=== PATIENT | female | born 1965 | race Caucasian/White ===

== ENCOUNTER 2018-05-03 09:22 | Inpatient (IN) | payer MEDICAID, MEDICARE ==
[2018-05-03 09:53] LABS: #Basophils 0.1 thou/uL (0.0-0.2); #Eosinphils 0.2 thou/uL (0.0-0.7); #Lymphocytes 3.1 thou/uL (1.20-3.40); #Monocytes 0.5 thou/uL (0.11-0.59); #Neutrophils 5.3 thou/uL (1.40-6.50); %Basophils 1.2 % (0.0-1.0); %Eosinophils 2.2 % (0.0-10.0); %Lymphocytes 33.6 % (21.0-51.0); %Monocytes 5.7 % (0.0-10.0); %Neutrophils 57.3 % (42.0-75.0); Hemoglobin 13.4 g/dL (12.0-16.0); Mean Corpuscular HGB CONC 31.5 g/dL (32.0-36.0); Mean Platelet Volume 8.4 fL (7.4-10.4); Platelet Count 317 thou/uL (130-400); RBC Distribution Width 12.4 % (11.5-14.5); Red Blood Cell (RBC) Count 4.61 mill/uL (4.20-5.40); White Blood Cell (WBC) Count 9.3 thou/uL (4.8-10.8)
--- NOTE | 2018-05-03 10:12 | RAD ---
PORTABLE CHEST: HISTORY: Chest pain. FINDINGS: The lungs are clear. No infiltrate or vascular congestion. The heart and mediastinum are unremarkab le. IMPRESSION: No acute finding. POS: [facility]
[2018-05-03 10:18] LABS: ALT (SGPT) 13 U/L (8-55); AST (SGOT) 15 U/L (5-34); Albumin 4.2 g/dL (3.5-5.0); Alkaline Phosphatase 151 U/L (40-150); Anion Gap 12 mmol/L (10-20); BUN (Urea Nitrogen) 14 mg/dL (9.8-20.1); Bilirubin, Total 0.9 mg/dL (0.2-1.2); CK (CPK) 94 U/L (29-168); Calc. Creatinine Clearance 0 mL/min (70-130); Calcium 9.7 mg/dL (7.8-10.44); Carbon Dioxide 25 mmol/L (22-29); Chloride 106 mmol/L (98-107); Estimated GFR-MDRD 82; Globulin 3.2 g/dL (2.4-3.5); Glucose 88 mg/dL (70-105); Lipase 7 U/L (8-78); Potassium 4.1 mmol/L (3.5-5.1); Protein, Total 7.4 g/dL (6.0-8.3); Sodium 139 mmol/L (136-145)
[2018-05-03 10:22] LABS: CKMB 1.5 ng/mL (0-6.6); Troponin I Less than 0.010 ng/mL (< 0.028)
[2018-05-03 13:23] VITALS: BMI 34.9
[2018-05-03] MEDS ORDERED: Nitroglycerin 0.4 MG TAB (25 Tab Bottle) PO PRN (13:41)
[2018-05-03] MEDS ORDERED: Guaifenesin DM 100-10/5 ML UDCUP PO PRN (13:41)
[2018-05-03] MEDS ORDERED: Ondansetron ODT 4 MG TAB SL PRN (13:56)
[2018-05-03] MEDS ORDERED: Ondansetron HCl/PF 4 MG/2 ML Vial IVP PRN (13:56)
[2018-05-03 16:17] LABS: Troponin I 0.023 ng/mL (< 0.028)
[2018-05-03] MEDS: Acetaminophen 325 MG TAB PO PRN ×2 (16:40→21:12)
--- NOTE | 2018-05-03 21:41 | HP ---
DATE OF ADMISSION: 05/03/2018 REASON FOR ADMISSION: Chest pain. HISTORY OF PRESENT ILLNESS: The patient gives history of retrosternal chest pain radiating to left upper extremity and left side of her neck, which comes on with minimal exertion. It lasts for 15-20 minutes and gets complete relief on resting. These of late have been associated with diaphoresis and the patient feels weak for nearly an hour or two after these episodes. No prior history of cardiac workup. No complaints of palpitations or PND. PAST MEDICAL AND SURGICAL HISTORY: History of hysterectomy for unknown cysts, obesity. CURRENT MEDICATIONS: None. ALLERGIES: No known drug allergies. PERSONAL HISTORY: Does not abuse alcohol or drugs. No history of smoking. FAMILY HISTORY: Mother is healthy and living. Brother has had history of Hodgkin's lymphoma. Father of massive NH and stroke in his 40s. She lives with her . Has grown up children. The patient does not work. CODE STATUS: Full. REVIEW OF SYSTEMS: The following complete review of systems was negative, unless otherwise mentioned in the HPI or below: Constitutional: Weight loss or gain, ability to conduct usual activities. Skin: Rash, itching. Eyes: Double vision, pain. ENT/Mouth: Nose bleeding, neck stiffness, pain, tenderness. Cardiovascular: Palpitations, dyspnea on exertion, orthopnea. Respiratory: Shortness of breath, wheezing, cough, hemoptysis, fever or night sweats. Gastrointestinal: Poor appetite, abdominal pain, heartburn, nausea, vomiting, constipation, or diarrhea. Genitourinary: Urgency, frequency, dysuria, nocturia. Musculoskeletal: Pain, swelling. Neurologic/Psychiatric: Anxiety, depression. Allergy/Immunologic: Skin rash, bleeding tendency. PHYSICAL EXAMINATION: GENERAL: The patient is a 53-year-old female who is currently not in any acute distress. VITAL SIGNS: Blood pressure 110/80, pulse 56 per minute, respiratory rate 18 per minute, temperature 97.9 degrees Fahrenheit, saturating 95% on room air. NECK: Supple. No elevated JVD. HEENT: Extraocular muscles intact. Pupils reacting to light. Oral cavity, mucous membranes are moist. No exudates or congestion. CARDIOVASCULAR: S1, S2 heard. Regular rhythm. RESPIRATORY: Air entry 2+ bilateral. No rales or rhonchi. ABDOMEN: Soft. Bowel sounds heard. No tenderness, rigidity or guarding. EXTREMITIES: No peripheral edema or calf tenderness. VASCULAR SYSTEM: Peripheral pulses 2+ bilateral. No ischemic ulcerations or gangrene. CENTRAL NERVOUS SYSTEM: No gross focal deficits noted. The patient is alert, awake, oriented well. PSYCHIATRIC: The patient's mood is euthymic. No hallucinations or delusions. LABORATORY AND X-RAY FINDINGS: Chest x-ray done shows no acute cardiopulmonary abnormalities. EKG done shows sinus bradycardia at 50 beats per minute. No gross ST-T wave changes. Troponin x2 negative. CK-MB 1.5, albumin is 4.2. Electrolytes are stable. BUN 14, creatinine 0.7. White count of 9, H and H of 13 and 42, platelet count 317,000, MCV is 92 with 57% neutrophils. CLINICAL IMPRESSION AND PLAN: The patient will be under observation on telemetry for chest pain to rule out acute coronary syndrome. The patient will be scheduled for Cardiolite stress test. She will be on full dose aspirin for now. The patient gives history of unknown mass in her abdomen with this apparently spreading inside her belly in the past and has not followed up with her physicians. She has not had a formal Oncology followup as well. She has been strongly counseled to follow up with primary care physician and have further workup for all of this. Also, apparently the patient has had prior history of bipolar disorder and schizophrenia, which she claims she is fully in remission at present and is not on any medications at present. The plan is to obtain Cardiolite stress test and if it is negative, the patient can be discharged home. CECILIA
[2018-05-04 04:30] LABS: #Basophils 0.1 thou/uL (0.0-0.2); #Eosinphils 0.4 thou/uL (0.0-0.7); #Lymphocytes 4.2 thou/uL (1.20-3.40); #Monocytes 0.6 thou/uL (0.11-0.59); #Neutrophils 4.8 thou/uL (1.40-6.50); %Basophils 1.1 % (0.0-1.0); %Eosinophils 3.5 % (0.0-10.0); %Lymphocytes 41.3 % (21.0-51.0); %Monocytes 6.1 % (0.0-10.0); Hemoglobin 13.2 g/dL (12.0-16.0); Mean Corpuscular HGB CONC 31.9 g/dL (32.0-36.0); Mean Corpuscular Hemoglobin 29.7 pg (27.0-31.0); Mean Corpuscular Volume 93.1 fL (78.0-98.0); Mean Platelet Volume 8.7 fL (7.4-10.4); Platelet Count 289 thou/uL (130-400); RBC Distribution Width 12.4 % (11.5-14.5); Red Blood Cell (RBC) Count 4.43 mill/uL (4.20-5.40)
[2018-05-04 04:38] LABS: Anion Gap 12 mmol/L (10-20); BUN (Urea Nitrogen) 19 mg/dL (9.8-20.1); Calc. Creatinine Clearance 125 mL/min (70-130); Calcium 9.3 mg/dL (7.8-10.44); Carbon Dioxide 25 mmol/L (22-29); Cardiac Risk 4.4 (Less than 4.5); Chloride 108 mmol/L (98-107); Cholesterol 168 mg/dl (< 200 Desired); Estimated GFR-MDRD 83; Glucose 97 mg/dL (70-105); HDL Cholesterol 38 mg/dL (>60 Neg Risk); LDL Cholesterol, Calculated 111 mg/dL; Potassium 4.3 mmol/L (3.5-5.1); Sodium 141 mmol/L (136-145); Triglycerides 93 mg/dL (Less than 150)
[2018-05-04] MEDS: Enoxaparin Sodium 40 MG/0.4 ML SYRINGE SC SCH (09:07)
[2018-05-04] MEDS: Aspirin 325 MG TAB PO SCH (09:32)
--- NOTE | 2018-05-04 10:38 | NM ---
REST ONLY MYOCARDIAL PERFUSION STUDY: DATE: 05/04/18. HISTORY: Chest pain. RADIOPHARMACEUTICAL: 27 mCi Technetium 99m sestamibi, IV at rest. FINDINGS: Only the rest portion of this examination was performed as the patient developed pain upon the stress portion of the examination and stress images were not obtained. Resting acquisition demonstrates no rmal uptake of radiotracer within the left ventricular myocardium. The patient was stressed accordin g to routine Graham protocol, but as noted above the patient developed chest pain and EKG changes. As a result, the stress images were not obtained. IMPRESSION: Stress imaging was not obtained due to patient's development of chest pain and abnormal EKG changes d uring the stress portion of the exam. As a result, comparison of rest and stress acquisitions was un able to be performed to evaluate for ischemia based on this exam. POS: [facility]
--- NOTE | 2018-05-04 13:10 | PDOC.PN ---
- Subjective Encounter Start Date: 05/04/18 Encounter Start Time: 11:30 Subjective: no current chest pain or palp - Objective Resuscitation Status: Resuscitation Status FULL:Full Resuscitation MAR Reviewed: Yes Vital Signs & Weight: Vital Signs (12 hours) Temp Pulse Resp BP Pulse Ox 05/04/18 11:08 98.5 F 47 L 16 146/72 H 97 05/04/18 07:29 97.4 F L 44 L 16 124/65 93 L 05/04/18 05:25 96 05/04/18 04:01 97.4 F L 60 14 136/65 96 Weight Weight 195 lb 11.2 oz I&O: 05/03/18 05/04/18 05/05/18 06:59 06:59 06:59 Intake Total 800 Balance 800 Result Diagrams: 05/04/18 04:00 05/04/18 04:00 Phys Exam - Physical Examination HEENT: PERRLA, moist MMs Neck: no JVD, supple Respiratory: no wheezing, no rales Cardiovascular: RRR, no significant murmur Gastrointestinal: soft, non-tender, positive bowel sounds Musculoskeletal: no edema, pulses present Neurological: non-focal, moves all 4 limbs Psychiatric: normal affect, A&O x 3 Dx/Plan (1) Chest pain Code(s): R07.9 - CHEST PAIN, UNSPECIFIED Status: Acute Qualifiers: Chest pain type: unspecified Qualified Code(s): R07.9 - Chest pain, unspecified (2) Obesity (BMI 30.0-34.9) Code(s): E66.9 - OBESITY, UNSPECIFIED Status: Chronic (3) Dyslipidemia Code(s): E78.5 - HYPERLIPIDEMIA, UNSPECIFIED Status: Acute - Plan has ST-T wave changes very early into stress test and had to be aborted -: cardio consult -: discussed in detail about angiogram, stenting, pci etc -: dc plan per cardio advice * . Review of Systems - Medications/Allergies Allergies/Adverse Reactions: Allergies Allergy/AdvReac Type Severity Reaction Status Date / Time No Known Allergies Allergy Verified 05/03/18 13:13 Medications: Current Medications Acetaminophen (Tylenol) 650 mg PO Q4H PRN PRN Reason: Headache/Fever or Pain Last Admin: 05/03/18 21:12 Dose: 650 mg Aspirin (Aspirin) 325 mg PO DAILY LANIE Last Admin: 05/04/18 09:32 Dose: Not Given Enoxaparin Sodium (Lovenox) 40 mg SC 09 [facility] Last Admin: 05/04/18 09:07 Dose: Not Given Guaifenesin/Dextromethorphan (Robitussin Dm) 15 ml PO Q4H PRN PRN Reason: Cough Nitroglycerin (Nitrostat) 0.4 mg PO Q5MIN PRN PRN Reason: Chest Pain
[2018-05-04] MEDS: Acetaminophen 325 MG TAB PO PRN ×2 (14:10→19:25)
[2018-05-05] MEDS: Enoxaparin Sodium 40 MG/0.4 ML SYRINGE SC SCH (08:32)
[2018-05-05] MEDS: Aspirin 325 MG TAB PO SCH (08:32)
[2018-05-05] MEDS: Acetaminophen 325 MG TAB PO PRN (08:32)
--- NOTE | 2018-05-05 11:20 | PDOC.CTH ---
<SaraarronSimona Allison - Last Filed: 05/05/18 11:19> Cardiology Progress Note - Subjective Patient with c/o chest pain overnight, but only when she got upset. - Objective Vital Signs Temp Pulse Resp BP Pulse Ox 05/05/18 07:26 98.7 F 51 L 16 167/79 H 95 05/05/18 05:27 96 05/05/18 04:02 98.4 F 58 L 20 160/70 H 96 Weight 195 lb 11.2 oz 05/04/18 05/05/18 05/06/18 06:59 06:59 06:59 Intake Total 800 1210 Balance 800 1210 - Physical Examination General/Neuro: alert & oriented x3 Neck: no JVD present Lungs: CTA Heart: RRR Abdomen: NT/ND Extremities: + edema B - Telemetry Telemetry Rhythm: SR - Labs Result Diagrams: 05/04/18 04:00 05/04/18 04:00 Troponin/CKMB CK-MB (CK-2) 1.5 ng/mL (0-6.6) 05/03/18 09:36 Troponin I 0.023 ng/mL (< 0.028) 05/03/18 15:44 - Assessment/Plan 1. CP 2. Abnormal stress test 3. Bipolar Disorder 4. Schizophrenia Patient has thought about options and wants to proceed with angio to definitively r/o CAD. Plan for tomorrow. Dr. Pierson to see patient and consent later today. <Luis Miguel Aguilar - Last Filed: 05/05/18 13:58> Cardiology Progress Note - Objective Vital Signs Temp Pulse Resp BP Pulse Ox 05/05/18 11:30 98.7 F 54 L 20 137/78 94 L 05/05/18 07:26 98.7 F 51 L 16 167/79 H 95 05/05/18 05:27 96 05/05/18 04:02 98.4 F 58 L 20 160/70 H 96 Weight 195 lb 11.2 oz 05/04/18 05/05/18 05/06/18 06:59 06:59 06:59 Intake Total 800 1210 Balance 800 1210 - Labs Result Diagrams: 05/04/18 04:00 05/04/18 04:00 Troponin/CKMB CK-MB (CK-2) 1.5 ng/mL (0-6.6) 05/03/18 09:36 Troponin I 0.023 ng/mL (< 0.028) 05/03/18 15:44 - Assessment/Plan Pt seen and examined. Pt opts for proceeding with angio. Discussed R/B of angio with pt. She is agreeable. present. t opts for a BMS over a DCS.
--- NOTE | 2018-05-05 12:38 | PDOC.PN ---
- Subjective Encounter Start Date: 05/05/18 Encounter Start Time: 10:15 Subjective: no chest pain or sob now - Objective Resuscitation Status: Resuscitation Status FULL:Full Resuscitation MAR Reviewed: Yes Vital Signs & Weight: Vital Signs (12 hours) Temp Pulse Resp BP Pulse Ox 05/05/18 11:30 98.7 F 54 L 20 137/78 94 L 05/05/18 07:26 98.7 F 51 L 16 167/79 H 95 05/05/18 05:27 96 05/05/18 04:02 98.4 F 58 L 20 160/70 H 96 Weight Weight 195 lb 11.2 oz I&O: 05/04/18 05/05/18 05/06/18 06:59 06:59 06:59 Intake Total 800 1210 Balance 800 1210 Result Diagrams: 05/04/18 04:00 05/04/18 04:00 Phys Exam - Physical Examination HEENT: PERRLA, moist MMs Neck: no JVD, supple Respiratory: no wheezing, no rales Cardiovascular: RRR, no significant murmur Gastrointestinal: soft, non-tender, positive bowel sounds Musculoskeletal: no edema, pulses present Neurological: non-focal, moves all 4 limbs Psychiatric: normal affect, A&O x 3 Dx/Plan (1) Chest pain Code(s): R07.9 - CHEST PAIN, UNSPECIFIED Status: Acute Qualifiers: Chest pain type: unspecified Qualified Code(s): R07.9 - Chest pain, unspecified (2) Obesity (BMI 30.0-34.9) Code(s): E66.9 - OBESITY, UNSPECIFIED Status: Chronic (3) Dyslipidemia Code(s): E78.5 - HYPERLIPIDEMIA, UNSPECIFIED Status: Acute - Plan for cath in am -: on asp, add lipitor and lisinopril -: hemostable -: pt and at bedside have decided to proceed with cath in am * . Review of Systems - Medications/Allergies Allergies/Adverse Reactions: Allergies Allergy/AdvReac Type Severity Reaction Status Date / Time No Known Allergies Allergy Verified 05/03/18 13:13 Medications: Current Medications Acetaminophen (Tylenol) 650 mg PO Q4H PRN PRN Reason: Headache/Fever or Pain Last Admin: 05/05/18 08:32 Dose: 650 mg Aspirin (Aspirin) 325 mg PO DAILY LANIE Last Admin: 05/05/18 08:32 Dose: 325 mg Enoxaparin Sodium (Lovenox) 40 mg SC 0900 [facility] Last Admin: 05/05/18 08:32 Dose: 40 mg Guaifenesin/Dextromethorphan (Robitussin Dm) 15 ml PO Q4H PRN PRN Reason: Cough Nitroglycerin (Nitrostat) 0.4 mg PO Q5MIN PRN PRN Reason: Chest Pain
--- NOTE | 2018-05-05 18:05 | CON ---
DATE OF CONSULTATION: 05/04/2018 REASON FOR CONSULTATION: Chest pain. HISTORY OF PRESENT ILLNESS: Ms. Murillo is a 53-year-old woman, who has not been seen by Cardiology in the past. She recently presented with angina. This occurred while being chased by a bee. She stat es she had chest pain with left arm and neck radiation. She states she has had this in the past. Elena anderson has been evaluated in [place] for chest discomfort and recommend coronary angiography with poten tial stent placement. She deferred. She recently underwent noninvasive stress study that was felt to be positive for ischemia. Ms. Murillo also has a vague episode of an abdominal mass, which she states was noted on her ovary with potential to metastasized? to the omentum. She has not sought further treatment. PAST MEDICAL HISTORY: Bipolar disorder, schizophrenia. PAST SURGICAL HISTORY: Hysterectomy. ALLERGIES: None. SOCIAL HISTORY: No current tobacco or alcohol use. FAMILY HISTORY: Positive for CAD. REVIEW OF SYSTEMS: Ten-point review of systems is reviewed and as above, otherwise negative. PHYSICAL EXAMINATION: VITAL SIGNS: Blood pressure 146/74, pulse 47, temperature 98.5. NEUROLOGIC: The patient is alert and oriented times 3 with no focal neurologic deficits. HEENT: Sclerae without icterus. Mouth has moist mucous membranes with normal pallor. NECK: No JVD. Carotid upstroke brisk. No bruits bilaterally. LUNGS: Clear to auscultation with unlabored respirations. BACK: No scoliosis or kyphosis. CARDIAC: Regular rate and rhythm with normal S1 and S2. No S3 or S4 noted. No significant rubs, murmurs, thrills, or gallops noted throughout the precordium. PMI is not displaced. There is no parasternal heave. ABDOMEN: Soft, nontender, nondistended. No peritoneal signs present. No hepatosplenomegaly. No abnormal striae. EXTREMITIES: 2+ femoral and 2+ dorsalis pedis pulses. No cyanosis, clubbing, or edema. SKIN: No gross abnormalities. PERTINENT LABS: CK troponin negative. IMPRESSION: Angina. RECOMMENDATIONS: Ms. Murillo symptoms certainly suggest angina. I discussed medical therapy versus an giography as previously described. I discussed the procedure in full detail to Ms. Murillo, risks incl uded but are not limited to the following: I discussed the procedure in full detail with the patient . The risks of the procedure were also discussed. The risks of the procedure include but are not li mited to the following: , stroke, [place], need for emergency surgery, loss of limb, bleeding, and i nfection, as well as a reaction to the dye causing kidney failure and needing long-term dialysis. I also discussed the risks of PCI to include all of the above including coronary dissection and perfora tion in addition to acute stent thrombosis and restenosis. All questions about the procedure were an swered. Given the above, the patient agreed to proceed with coronary angiography and possible PCI. bare metal stent. She states she currently gets medical therapy, but would take medication for at least a month, if needed. She can also take aspirin indefinitely. She would like to think about her options. She will also have a workup for this? mass present. This will be per primary team.
[2018-05-05] MEDS: Atorvastatin Calcium 20 MG TAB PO SCH (20:45)
[2018-05-06] MEDS: Acetaminophen 325 MG TAB PO PRN ×3 (00:41→21:11)
[2018-05-06] MEDS: Aspirin 325 MG TAB PO SCH (05:09)
[2018-05-06] MEDS: Lisinopril 10 MG TAB PO SCH (05:09)
[2018-05-06] MEDS: Enoxaparin Sodium 40 MG/0.4 ML SYRINGE SC SCH (05:10)
[2018-05-06] MEDS ORDERED: Heparin 10,000 UNITS/1 ML VIAL ONE (07:43)
[2018-05-06] MEDS ORDERED: Lidocaine 1% (PF) 30 ML VIAL ONE ×2 (07:43→09:22)
[2018-05-06] MEDS ORDERED: Nitroglycerin 100MG/250ML BOT 250 ML ONE (07:43)
[2018-05-06] MEDS ORDERED: Sodium Chloride 0.9% 1,000 ML IV SCH ×2 (08:45→10:00)
[2018-05-06] MEDS ORDERED: Fentanyl 100 MCG/2 ML VIAL ONE (09:30)
[2018-05-06] MEDS ORDERED: Midazolam HCl 2 mg/2 ml Vial ONE (09:30)
[2018-05-06] MEDS ORDERED: traMADol HCl 50 MG TAB PO PRN (09:52)
[2018-05-06] MEDS ORDERED: Acetaminophen/Codeine 30-300mg Tablet PO PRN ×2 (09:52)
--- NOTE | 2018-05-06 09:56 | PDOC.PN ---
- Subjective Encounter Start Date: 05/06/18 Encounter Start Time: 08:00 Subjective: no further chest pain - Objective Resuscitation Status: Resuscitation Status FULL:Full Resuscitation MAR Reviewed: Yes Vital Signs & Weight: Vital Signs (12 hours) Temp Pulse Resp BP BP Pulse Ox 05/06/18 07:24 97.8 F 53 L 18 182/81 H 95 05/06/18 05:09 144/77 H 05/06/18 05:08 97.8 F 50 L 18 144/77 H 95 05/05/18 22:54 98.2 F 51 L 15 150/70 H 97 Weight Weight 194 lb 3.2 oz I&O: 05/05/18 05/06/18 05/07/18 06:59 06:59 06:59 Intake Total 1210 1150 Balance 1210 1150 Result Diagrams: 05/04/18 04:00 05/04/18 04:00 Phys Exam - Physical Examination HEENT: PERRLA, moist MMs Neck: no JVD, supple Respiratory: no wheezing, no rales Cardiovascular: RRR, no significant murmur Gastrointestinal: soft, non-tender, positive bowel sounds Musculoskeletal: no edema, pulses present Neurological: non-focal, moves all 4 limbs Psychiatric: normal affect, A&O x 3 Dx/Plan (1) Chest pain Code(s): R07.9 - CHEST PAIN, UNSPECIFIED Status: Acute Qualifiers: Chest pain type: unspecified Qualified Code(s): R07.9 - Chest pain, unspecified (2) Obesity (BMI 30.0-34.9) Code(s): E66.9 - OBESITY, UNSPECIFIED Status: Chronic (3) Dyslipidemia Code(s): E78.5 - HYPERLIPIDEMIA, UNSPECIFIED Status: Acute - Plan for cath today -: is on asp, lipitor and lisinopril -: hemostable * . Review of Systems - Medications/Allergies Allergies/Adverse Reactions: Allergies Allergy/AdvReac Type Severity Reaction Status Date / Time No Known Allergies Allergy Verified 05/03/18 13:13 Medications: Current Medications Acetaminophen (Tylenol) 650 mg PO Q4H PRN PRN Reason: Headache/Fever or Pain Last Admin: 05/06/18 00:41 Dose: 650 mg Acetaminophen/Codeine Phosphate (Tylenol #3) 1 tab PO Q4H PRN PRN Reason: Mild Pain (1-3) Acetaminophen/Codeine Phosphate (Tylenol #3) 2 tab PO Q4H PRN PRN Reason: Moderate Pain (4-6) Aspirin (Aspirin) 325 mg PO DAILY [facility] Last Admin: 05/06/18 05:09 Dose: 325 mg Atorvastatin Calcium (Lipitor) 20 mg PO HS [facility] Last Admin: 05/05/18 20:45 Dose: 20 mg Enoxaparin Sodium (Lovenox) 40 mg SC 0900 [facility] Last Admin: 05/06/18 05:10 Dose: Not Given Guaifenesin/Dextromethorphan (Robitussin Dm) 15 ml PO Q4H PRN PRN Reason: Cough Sodium Chloride (Normal Saline 0.9%) 1,000 mls @ 100 mls/hr IV .Q10H LANIE Sodium Chloride (Normal Saline 0.9%) 1,000 mls @ 125 mls/hr IV .Q8H [facility] Stop: 05/06/18 14:01 Sodium Chloride (Normal Saline 0.9%) 200 mls @ 0 mls/hr IV ONE [facility] Lisinopril (Zestril) 10 mg PO DAILY [facility] Last Admin: 05/06/18 05:09 Dose: 10 mg Nitroglycerin (Nitrostat) 0.4 mg PO Q5MIN PRN PRN Reason: Chest Pain Nitroglycerin (Nitrostat) 0.4 mg SL Q5MIN PRN PRN Reason: Chest Pain Sodium Chloride (Flush - Normal Saline) 10 ml IVF Q12HR [facility]IE Sodium Chloride (Flush - Normal Saline) 10 ml IVF PRN PRN PRN Reason: Saline Flush Tramadol HCl (Ultram) 50 mg PO Q6H PRN PRN Reason: Moderate Pain (4-6)
[2018-05-06] MEDS ORDERED: Sodium Chloride 0.9% 200 ML IV PRN (10:00)
[2018-05-06] MEDS ORDERED: Diazepam 5 MG TAB PO PRN (11:00)
[2018-05-06] MEDS ORDERED: Communication Order-Pharmacy FS ONE (11:00)
[2018-05-06] MEDS: Nitroglycerin 0.4 MG TAB (25 Tab Bottle) SL PRN ×3 (11:57→21:15)
[2018-05-06 11:59] LABS: PTT 33.8 SEC (22.9-36.1)
[2018-05-06 12:04] LABS: Hemoglobin A1c 5.1 % (4.0-6.0)
--- NOTE | 2018-05-06 12:36 | CON ---
DATE OF CONSULTATION: 05/06/2018 DATE OF ADMISSION: 05/03/2018 REASON FOR CONSULTATION: Evaluate the patient for coronary artery bypass grafting. Chart reviewed/patient examined/films reviewed. HISTORY OF PRESENT ILLNESS: Ms. Murillo is a 53-year-old woman, who was admitted with angina. She was apparently running across her yard and had chest pain. She has a previous history of chest pain chin roximately 7 years ago where cardiac catheterization was recommended and she did not follow up. She is very unclear as to any medical history. She does not use a traditional medicine at home. She was admitted and underwent a stress test, which was positive and subsequent catheterization today revealing an ostial LAD severe stenosis. I have been asked to see her for bypass. PAST MEDICAL HISTORY: 1. Bipolar disorder. 2. Schizophrenia. PAST SURGICAL HISTORY: Hysterectomy. CURRENT MEDICATIONS: None. ALLERGIES: None. SOCIAL HISTORY: She does not use tobacco. REVIEW OF SYSTEMS: Ten-point review of systems is performed and is negative except as above. PHYSICAL EXAMINATION: GENERAL: This is a well-developed, well-nourished woman, resting comfortably in bed. VITAL SIGNS: Height is 5 foot 3 inches, weight is 194 pounds, BSA is 1.98, temperature is 97.8, puls e is 51 and regular, blood pressure is 173/75. HEENT: Sclerae nonicteric. Pupils are equal and round bilaterally. NECK: Supple, without bruit. CHEST: Clear to auscultation bilaterally. HEART: Rhythm is regular, without murmur. ABDOMEN: Soft and nontender. EXTREMITIES: No cyanosis, clubbing or edema. VASCULAR: She has palpable carotid, radial, femoral and dorsalis pedis pulses bilaterally. VENOUS: There are no venous varicosities or venous stasis changes. PSYCHIATRIC: The patient is awake, alert, and oriented to person, place and time. SKIN: She does have tattoos all over her face, outlining her makeup. LABORATORY DATA AND IMAGING: Of note, hemoglobin is 13.2, platelet count is 289,000. Potassium is 4 .3, creatinine is 0.73. Her total cholesterol is 168 with a LDL of 111, HDL is 38. She has not had a hemoglobin A1c checked. Chest x-ray shows no dominant lung mass. ASSESSMENT AND PLAN: Angina with ostial LAD stenosis and preserved left ventricular function. I thi nk she can be done as an off pump CABG with PHAM to LAD. I have discussed this with her and she is a menable to proceeding.
[2018-05-06] MEDS ORDERED: Polyethylene Glycol 3350 17 GM Packet PO SCH (19:00)
[2018-05-06] MEDS ORDERED: Bisacodyl 10 MG SUPP PR SCH (19:00)
[2018-05-06] MEDS: Atorvastatin Calcium 20 MG TAB PO SCH (21:11)
[2018-05-06] MEDS: Docusate 100 MG CAP PO SCH (21:12)
[2018-05-07] MEDS: Acetaminophen 325 MG TAB PO PRN ×3 (03:23→21:17)
[2018-05-07] MEDS: Nitroglycerin 0.4 MG TAB (25 Tab Bottle) SL PRN ×6 (03:24→21:17)
--- NOTE | 2018-05-07 08:11 | PDOC.CTH ---
Cardiology Progress Note - Subjective No cmplaints today. - Objective Vital Signs Temp Pulse Resp BP Pulse Ox 05/07/18 07:35 97.5 F L 51 L 15 146/68 H 95 05/07/18 04:00 97.6 F 47 L 16 124/60 97 Weight 193 lb 11.2 oz 05/06/18 05/07/18 05/08/18 06:59 06:59 06:59 Intake Total 1150 1800 Output Total 500 Balance 1150 1300 - Physical Examination General/Neuro: alert & oriented x3, NAD Neck: carotid US brisk, no JVD present Lungs: CTA, unlabored respirations Heart: PMI normal, RRR Abdomen: no HSM, NT/ND, soft Extremities: + femoral B - Labs Result Diagrams: 05/04/18 04:00 05/04/18 04:00 Troponin/CKMB CK-MB (CK-2) 1.5 ng/mL (0-6.6) 05/03/18 09:36 Troponin I 0.023 ng/mL (< 0.028) 05/03/18 15:44 - Assessment/Plan Sevre CAD Recommend CABG over PCI given location and small diameter of the LAD. Pt also opted for BMS over DCS and would more likley have ISR. She agrees. No other changes On statin and BB
[2018-05-07] MEDS: Aspirin 325 MG TAB PO SCH (09:09)
[2018-05-07] MEDS: Docusate 100 MG CAP PO SCH ×2 (09:09→20:50)
[2018-05-07] MEDS: Lisinopril 10 MG TAB PO SCH (09:09)
[2018-05-07] MEDS: Polyethylene Glycol 3350 17 GM Packet PO SCH (09:10)
--- NOTE | 2018-05-07 10:32 | PDOC.PN ---
- Subjective Encounter Start Date: 05/07/18 Encounter Start Time: 10:15 Subjective: no chest pain or sob or palpitation - Objective Resuscitation Status: Resuscitation Status FULL:Full Resuscitation MAR Reviewed: Yes Vital Signs & Weight: Vital Signs (12 hours) Temp Pulse Resp BP Pulse Ox 05/07/18 07:35 97.5 F L 51 L 15 146/68 H 95 05/07/18 04:00 97.6 F 47 L 16 124/60 97 Weight Weight 193 lb 11.2 oz I&O: 05/06/18 05/07/18 05/08/18 06:59 06:59 06:59 Intake Total 1150 1800 Output Total 500 Balance 1150 1300 Result Diagrams: 05/04/18 04:00 05/04/18 04:00 Phys Exam - Physical Examination HEENT: PERRLA, moist MMs Neck: no JVD, supple Respiratory: no wheezing, no rales Cardiovascular: RRR, no significant murmur Gastrointestinal: soft, non-tender, positive bowel sounds Musculoskeletal: no edema, pulses present Neurological: non-focal, moves all 4 limbs Psychiatric: normal affect, A&O x 3 Dx/Plan (1) CAD (coronary artery disease) Code(s): I25.10 - ATHSCL HEART DISEASE OF [place] CORONARY ARTERY W/O ANG PCTRS Status: Acute Qualifiers: Coronary Disease-Associated Artery/Lesion type: [place] artery [place] vs. transplanted heart: [place] heart Associated angina: with unstable angina Qualified Code(s): I25.110 - Atherosclerotic heart disease of [place] coronary artery with unstable angina pectoris (2) Chest pain Code(s): R07.9 - CHEST PAIN, UNSPECIFIED Status: Acute Qualifiers: Chest pain type: chest pain due to myocardial ischemia (3) Obesity (BMI 30.0-34.9) Code(s): E66.9 - OBESITY, UNSPECIFIED Status: Chronic (4) Dyslipidemia Code(s): E78.5 - HYPERLIPIDEMIA, UNSPECIFIED Status: Acute - Plan for off pump cabg to lad in am -: continue asp, lipitor and lisinopril -: hemostable * . Review of Systems - Medications/Allergies Allergies/Adverse Reactions: Allergies Allergy/AdvReac Type Severity Reaction Status Date / Time No Known Allergies Allergy Verified 05/03/18 13:13 Medications: Current Medications Acetaminophen (Tylenol) 650 mg PO Q4H PRN PRN Reason: Headache/Fever or Pain Stop: 05/08/18 08:59 Last Admin: 05/07/18 03:23 Dose: 650 mg Acetaminophen/Codeine Phosphate (Tylenol #3) 1 tab PO Q4H PRN PRN Reason: Mild Pain (1-3) Stop: 05/08/18 08:59 Acetaminophen/Codeine Phosphate (Tylenol #3) 2 tab PO Q4H PRN PRN Reason: Moderate Pain (4-6) Stop: 05/08/18 08:59 Aspirin (Aspirin) 325 mg PO DAILY [facility] Stop: 05/08/18 08:59 Last Admin: 05/07/18 09:09 Dose: 325 mg Atorvastatin Calcium (Lipitor) 20 mg PO HS [facility] Stop: 05/08/18 08:59 Last Admin: 05/06/18 21:11 Dose: 20 mg Atorvastatin Calcium (Lipitor) 40 mg PO HS [facility] Diazepam (Valium) 5 mg PO HSPRN PRN PRN Reason: Insomnia Stop: 05/08/18 08:59 Docusate Sodium (Colace) 100 mg PO BID [facility] Last Admin: 05/07/18 09:09 Dose: 100 mg Guaifenesin/Dextromethorphan (Robitussin Dm) 15 ml PO Q4H PRN PRN Reason: Cough Stop: 05/08/18 08:59 Lisinopril (Zestril) 10 mg PO DAILY [facility] Stop: 05/08/18 08:59 Last Admin: 05/07/18 09:09 Dose: 10 mg Nitroglycerin (Nitrostat) 0.4 mg SL Q5MIN PRN PRN Reason: Chest Pain Stop: 05/08/18 08:59 Last Admin: 05/07/18 03:50 Dose: 0.4 mg Polyethylene Glycol (Miralax) 17 gm PO DAILY [facility] Last Admin: 05/07/18 09:10 Dose: 17 gm Sodium Chloride (Flush - Normal Saline) 10 ml IVF Q12HR [facility] Last Admin: 05/07/18 09:10 Dose: 10 ml Sodium Chloride (Flush - Normal Saline) 10 ml IVF PRN PRN PRN Reason: Saline Flush Tramadol HCl (Ultram) 50 mg PO Q6H PRN PRN Reason: Moderate Pain (4-6) Stop: 05/08/18 08:59
--- NOTE | 2018-05-07 15:47 | EKG ---
Test Reason : CP Blood Pressure : / mmHG Vent. Rate : 068 BPM Atrial Rate : 068 BPM P-R Int : 144 ms QRS Dur : 078 ms QT Int : 390 ms P-R-T Axes : 021 012 083 degrees QTc Int : 414 ms Normal sinus rhythm Normal ECG When compared with ECG of 03-MAY-2018 09:27, (Unconfirmed) No significant change was found Confirmed by CHIOMA STEWARD, . S. ([id number]) on 05/07/2018 3:47:27 PM Referred By: IDA Confirmed By:DR. Luna BEDOLLA MD
[2018-05-07] MEDS: Atorvastatin Calcium 40 MG TAB PO SCH (20:49)
[2018-05-07] MEDS ORDERED: CEFAZOLIN/Water 2 GM/20 ML SYRINGE SLOW IVP SCH (22:30)
[2018-05-08] MEDS: Lisinopril 10 MG TAB PO SCH (05:25)
[2018-05-08] MEDS ORDERED: Albumin 5% 500 ML ONE (05:47)
[2018-05-08] MEDS ORDERED: Fentanyl 100 MCG/2 ML VIAL ONE (06:00)
[2018-05-08] MEDS ORDERED: Midazolam HCl 2 mg/2 ml Vial ONE (06:00)
[2018-05-08] MEDS ORDERED: Midazolam HCl 5 mg/5 ml Vial ONE (06:00)
[2018-05-08] MEDS ORDERED: Vecuronium 10 MG VIAL ONE ×3 (06:01→15:13)
[2018-05-08] MEDS ORDERED: Dexmedetomidine 200 MCG/2 ML VIAL ONE (06:01)
[2018-05-08] MEDS ORDERED: Heparin 10,000 UNITS/1 ML VIAL 30,000 UNITS in Sodium Chloride 0.9% 1,000 ML FS SCH (06:15)
[2018-05-08] MEDS ORDERED: CEFAZOLIN/Water 2 GM/20 ML SYRINGE ONE (06:16)
[2018-05-08] MEDS ORDERED: SUGAMMADEX SODIUM 200 MG/2 ML VIAL ONE (09:30)
[2018-05-08] MEDS ORDERED: Guaifenesin DM 100-10/5 ML UDCUP PO PRN (09:46)
[2018-05-08] MEDS ORDERED: Bisacodyl 5 MG TAB PO PRN (09:46)
[2018-05-08] MEDS ORDERED: Mag-Al 1200 mg/1200 mg/30 ML UDCUP PO PRN (09:46)
[2018-05-08] MEDS ORDERED: Magnesium 2 GM/NS 0.9% 100 ML 2 GM in Premix Bag 1 BAG IVPB SCH (09:46)
[2018-05-08] MEDS ORDERED: Post-Op Insulin Drip Protocol IVPB ONE (09:46)
[2018-05-08] MEDS ORDERED: Phenylephrine 10 MG/NS 250 ML 250 ML IVPB PRN (09:46)
[2018-05-08] MEDS ORDERED: Hetastarch 6% 500 ML 500 ML IVPB PRN (09:46)
[2018-05-08] MEDS ORDERED: Nitroglycerin 50 MG/250 ML BOT 250 ML IVPB PRN (09:46)
[2018-05-08] MEDS ORDERED: Potassium Chloride 20 MEQ/100 ML PREMIX BAG IVPB PRN (09:46)
[2018-05-08] MEDS ORDERED: Bisacodyl 10 MG SUPP PR PRN (09:46)
[2018-05-08] MEDS ORDERED: hydrALAZINE 20 MG/ML VIAL SLOW IVP PRN (09:46)
[2018-05-08] MEDS ORDERED: Acetaminophen 325 MG TAB PO PRN (09:46)
[2018-05-08] MEDS ORDERED: Fentanyl 100 MCG/2 ML VIAL SLOW IVP PRN (09:46)
[2018-05-08] MEDS ORDERED: Promethazine HCl 25 MG/ML VIAL IM PRN (09:46)
[2018-05-08] MEDS: Docusate 100 MG CAP PO SCH (09:49)
[2018-05-08] MEDS: Polyethylene Glycol 3350 17 GM Packet PO SCH (09:50)
[2018-05-08] MEDS ORDERED: Dextrose 5% in Water 1,000 ML IV PRN (09:53)
[2018-05-08] MEDS ORDERED: Dextrose 50% Abboject 50 ML SYRINGE SLOW IVP PRN (09:53)
[2018-05-08 10:02] LABS: Actual Bicarbonate (HCO3a) 21.8 mEq/L (22-28); Base Excess (BEa) -4.2 mEq/L (-2.0 to +3.0); CO2 Tension 43.5 mmHg (35.0-45.0); Calcium, Ionized 1.14 mmol/L (1.12-1.30); Hemoglobin (Hb) 12.4 g/dL (12.0-16.0); Potassium - ABG Lab 4.21 mmol/L (3.70-5.30); pH, Arterial 7.32 (7.35-7.45)
[2018-05-08 10:03] LABS: ALV-art Gradient 213.125 (0-20); Puncture Site ALINE
[2018-05-08 10:13] LABS: #Basophils 0.1 thou/uL (0.0-0.2); #Eosinphils 0.2 thou/uL (0.0-0.7); #Lymphocytes 3.1 thou/uL (1.20-3.40); #Monocytes 0.4 thou/uL (0.11-0.59); #Neutrophils 12.5 thou/uL (1.40-6.50); %Basophils 0.7 % (0.0-1.0); %Eosinophils 1.3 % (0.0-10.0); %Monocytes 2.4 % (0.0-10.0); %Neutrophils 76.6 % (42.0-75.0); Hemoglobin 12.1 g/dL (12.0-16.0); Mean Corpuscular HGB CONC 31.1 g/dL (32.0-36.0); Mean Corpuscular Hemoglobin 28.8 pg (27.0-31.0); Mean Corpuscular Volume 92.6 fL (78.0-98.0); Mean Platelet Volume 8.4 fL (7.4-10.4); Platelet Count 268 thou/uL (130-400); RBC Distribution Width 12.3 % (11.5-14.5); Red Blood Cell (RBC) Count 4.21 mill/uL (4.20-5.40); White Blood Cell (WBC) Count 16.4 thou/uL (4.8-10.8)
[2018-05-08] MEDS: D5 1/2 NS w/20 mEq KCL 1,000 ML IV SCH (10:17)
[2018-05-08 10:19] LABS: INR-International Normal Ratio 1.1; Prothrombin Time 14.2 SEC (12.0-14.7)
[2018-05-08 10:20] LABS: PTT 36.6 SEC (22.9-36.1)
[2018-05-08] MEDS: Insulin Regular 300 UNITS/3 ML VIAL SC PRN ×3 (10:26→16:51)
--- NOTE | 2018-05-08 10:32 | OP ---
DATE OF PROCEDURE: 05/08/2018 PREOPERATIVE DIAGNOSIS: Coronary artery disease. POSTOPERATIVE DIAGNOSIS: Coronary artery disease. PROCEDURE: Off-pump coronary artery bypass grafting x1 - left internal mammary artery 1.0 mm distal LAD - good conduit with small target. SURGEON: Josiah Dawson M.D. ANESTHESIA: General endotracheal - Dr. Alena Hinojosa. DRAINS: 24-[place] chest tubes x2. DRIPS: None. TRANSFUSIONS: None. DESCRIPTION OF PROCEDURE: After consent was obtained, the patient was brought to the operating room and placed in the supine position on the operating table. Appropriate anesthetic monitor was placed and general endotracheal anesthesia induced. Chest, abdomen, and legs were prepped and draped in usu al sterile fashion. Median sternotomy was performed. Left internal mammary artery was harvested as a pedicle graft. The patient was systemically heparinized. Distal pedicle was divided and infused w ith papaverine. Thymic fat and pericardium were divided with electrocautery. Pericardial stay sutur es were placed. The heart was then positioned for LAD bypass. Proximal control was obtained with ve ssel loop. Heart was stabilized with Octopus retractor. Mammary artery was brought through a window in the pericardium and anastomosed the distal LAD in end-to-side fashion with running 7-0 Prolene weston ture. A 1.0 mm probe passed proximally and distally at completion of the anastomosis. Suture was ti ed. Pedicle was secured with interrupted 6-0 Prolene suture. Protamine was administered. A 24-Fren ch chest tubes x2 were placed in mediastinum. Sternum was treated with vancomycin paste. After adeq uate hemostasis had been obtained, sternum was closed with #5 wire. Sternum was treated with platele t-rich plasma, wires twisted. Wounds irrigated, treated with platelet-poor plasma, and closed in mul tiple layers. Needle, sponge, and instrument counts were all recorded as correct. The patient was t ransferred to the intensive care unit in stable, but critical condition.
[2018-05-08 10:33] LABS: Anion Gap 8 mmol/L (10-20); BUN (Urea Nitrogen) 14 mg/dL (9.8-20.1); Calc. Creatinine Clearance 135 mL/min (70-130); Calcium 8.4 mg/dL (7.8-10.44); Carbon Dioxide 24 mmol/L (22-29); Chloride 109 mmol/L (98-107); Estimated GFR-MDRD 89; Glucose 137 mg/dL (70-105); Potassium 4.3 mmol/L (3.5-5.1); Sodium 137 mmol/L (136-145)
[2018-05-08] MEDS: Ketorolac Tromethamine 30 MG/ML VIAL IVP SCH ×3 (11:10→23:09)
--- NOTE | 2018-05-08 11:12 | RAD ---
PORTABLE AP CHEST RADIOGRAPH: DATE: 05-08-18 History: Post open heart surgery. Comparison: 05-03-18 FINDINGS: Interval post-surgical changes related to median sternotomy. Mediastinal drains and left sided thorac ostomy tube are noted in place. There is a linear area of parenchymal opacity in the left midlung zon e, probably related to atelectasis. Atelectasis is present at the right lung base. Cardiac silhouette is magnified by projection but does appear mildly enlarged. Pulmonary vasculature is within normal l imits. Right subclavian central venous catheter is noted in place with the tip difficult to visualize , but probably overlies the region of the cavoatrial junction. IMPRESSION: 1. Interval post-surgical changes with lines and tubes in place as described above. 2. Mild increased perihilar interstitial densities which may be related to prominence of the central pulmonary vasculature. In addition, there is parenchymal opacity in the left midlung zone probably re lated to subsegmental atelectasis, but follow up evaluation is recommended. POS: SHYANNE
--- NOTE | 2018-05-08 11:26 | PDOC.PN ---
- Subjective Encounter Start Date: 05/08/18 Encounter Start Time: 11:15 Subjective: is post cabg, extubated in pacu -: awakens easily - Objective Resuscitation Status: Resuscitation Status FULL:Full Resuscitation MAR Reviewed: Yes Vital Signs & Weight: Vital Signs (12 hours) Temp Pulse Resp BP BP Pulse Ox 05/08/18 10:06 99 05/08/18 05:25 138/63 05/08/18 04:00 97.7 F 62 16 138/63 96 Weight Weight 200 lb 1.6 oz I&O: 05/07/18 05/08/18 05/09/18 06:59 06:59 06:59 Intake Total 1800 1280 Output Total 500 1150 60 Balance 1300 130 -60 Result Diagrams: 05/08/18 10:03 05/08/18 10:03 Additional Labs: Accuchecks 05/08/18 05/08/18 05/08/18 09:58 09:13 08:20 POC Glucose 131 H 166 H 181 H 05/08/18 05/08/18 07:38 06:12 POC Glucose 124 H 86 Phys Exam - Physical Examination HEENT: PERRLA, sclera anicteric Neck: no JVD, supple Respiratory: no wheezing, no rales Cardiovascular: RRR, no significant murmur Gastrointestinal: soft, positive bowel sounds Musculoskeletal: no edema, pulses present Neurological: non-focal, moves all 4 limbs Dx/Plan (1) S/P CABG x 1 Code(s): Z95.1 - PRESENCE OF AORTOCORONARY BYPASS GRAFT Status: Acute Comment: ochoa to lad off pump (2) CAD (coronary artery disease) Code(s): I25.10 - ATHSCL HEART DISEASE OF [place] CORONARY ARTERY W/O ANG PCTRS Status: Acute Qualifiers: Coronary Disease-Associated Artery/Lesion type: bypass graft [place] vs. transplanted heart: [place] heart Associated angina: with unstable angina Qualified Code(s): I25.700 - Atherosclerosis of coronary artery bypass graft(s) , unspecified, with unstable angina pectoris (3) Chest pain Code(s): R07.9 - CHEST PAIN, UNSPECIFIED Status: Acute Qualifiers: Chest pain type: chest pain due to myocardial ischemia (4) Obesity (BMI 30.0-34.9) Code(s): E66.9 - OBESITY, UNSPECIFIED Status: Chronic (5) Dyslipidemia Code(s): E78.5 - HYPERLIPIDEMIA, UNSPECIFIED Status: Acute - Plan post op doing well -: electrolytes are stable -: hemo/neurostable -: will f/u -: at bedside * . Review of Systems - Medications/Allergies Allergies/Adverse Reactions: Allergies Allergy/AdvReac Type Severity Reaction Status Date / Time No Known Allergies Allergy Verified 05/03/18 13:13 Medications: Current Medications Acetaminophen (Tylenol) 650 mg PO Q6H PRN PRN Reason: Headache/Fever Or Mild Pain Hydrocodone Bitart/Acetaminophen ([place] 5/325) 1 tab PO Q4H PRN PRN Reason: Moderate Pain (4-6) Hydrocodone Bitart/Acetaminophen ([place] 5/325) 2 tab PO Q4H PRN PRN Reason: Severe Pain (7-10) Al Hydroxide/Mg Hydroxide (Maalox) 30 ml PO Q4H PRN PRN Reason: Indigestion Albumin Human (Albumin 5%) 12.5 gm IVPB Q6H PRN PRN Reason: To Maintain SBP> 90 mmHG Stop: 05/09/18 09:47 Albumin Human (Albumin 5%) 25 gm IVPB Q6H PRN PRN Reason: To Maintain SBP > 90 mmHG Stop: 05/09/18 09:47 Albuterol/Ipratropium (Duoneb) 3 ml NEB [id number] PRN PRN Reason: SHORTNESS OF BREATH Aspirin (Aspirin) 325 mg PO DAILY [facility] Atorvastatin Calcium (Lipitor) 40 mg PO HS [facility] Last Admin: 05/07/18 20:49 Dose: 40 mg Bisacodyl (Dulcolax) 10 mg PO Q12H PRN PRN Reason: Constipation Bisacodyl (Dulcolax) 10 mg DC Q12H PRN PRN Reason: Constipation Cefazolin Sodium (Ancef) 2 gm SLOW IVP Q8HR [facility] Stop: 05/09/18 06:01 Dextrose/Water (Dextrose 50%) 25 gm SLOW IVP PRN PRN PRN Reason: PER HYPOGLYCEMIC PROTOCOL Famotidine (Pepcid) 20 mg SLOW IVP Q12HR [facility] Fentanyl (Sublimaze) 25 mcg SLOW IVP Q2H PRN PRN Reason: Moderate Pain (4-6) Stop: 05/10/18 09:40 Fentanyl (Sublimaze) 50 mcg SLOW IVP Q2H PRN PRN Reason: Severe Pain (7-10) Stop: 05/10/18 09:40 Glucagon (Glucagon) 1 mg SC PRN PRN PRN Reason: PER HYPOGLYCEMIC PROTOCOL Guaifenesin/Dextromethorphan (Robitussin Dm) 15 ml PO Q4H PRN PRN Reason: Cough Hydralazine HCl (Apresoline) 10 mg SLOW IVP Q6H PRN PRN Reason: To Maintain SBP< 140mmHG Potassium Chloride/Dextrose/Sod Cl (D5 1/2 Ns W/20 Meq Kcl) 1,000 mls @ 40 mls/ hr IV .Q24H [facility] Last Admin: 05/08/18 10:17 Dose: 1,000 mls Hetastarch/Sodium Chloride (Hespan) 500 mls @ 0 mls/hr IVPB PRN PRN PRN Reason: To Maintain SBP > 90mmHg Stop: 05/09/18 09:40 Magnesium Sulfate 2 gm/ Device 100 mls @ 100 mls/hr IVPB NOW [facility] Stop: 05/08/18 12:00 Last Admin: 05/08/18 10:20 Dose: 100 mls Nicardipine HCl 25 mg/ Sodium (Chloride) 260 mls @ 0 mls/hr IVPB INF PRN; Protocol PRN Reason: To Maintain SBP< 140mmHG Nitroglycerin/Dextrose (Nitroglycerin 50 Mg/250 Ml Bot) 250 mls @ 0 mls/hr IVPB PRN PRN; Protocol PRN Reason: To Maintain SBP< 140mmHG Phenylephrine HCl (Eran-Synephrine) 250 mls @ 0 mls/hr IVPB PRN PRN; Protocol PRN Reason: To maintain SBP > 90 mmHG Insulin Human Regular 100 (units/ Sodium Chloride) 101 mls @ 0 mls/hr IVPB INF [facility]; Protocol Dextrose/Water (D5w) 1,000 mls @ 0 mls/hr IV INF PRN PRN Reason: PRN HYPOGLYCEMIC PROTOCOL Insulin Glargine (Lantus) 0 units SC ONE PRN PRN Reason: PER OPEN HEART ORDERS Stop: 05/09/18 17:00 Insulin Human Regular (Humulin R) 0 units SC Q4H PRN; Protocol PRN Reason: POST OP SLIDING SCALE Last Admin: 05/08/18 10:26 Dose: 2 unit Ketorolac Tromethamine (Toradol) 30 mg IVP Q6HR [facility] Stop: 05/11/18 12:01 Last Admin: 05/08/18 11:10 Dose: 30 mg Morphine Sulfate (Morphine) 2 mg SLOW IVP Q15MIN PRN PRN Reason: Severe Pain (7-10) Ondansetron HCl (Zofran) 4 mg IVP Q6H PRN PRN Reason: Nausea/Vomiting Potassium Chloride (Kcl) 20 meq IVPB PRN PRN PRN Reason: K level </= 4.0 Promethazine HCl (Phenergan) 6.25 mg IM Q4H PRN PRN Reason: Nausea/Vomiting Sodium Chloride (Flush - Normal Saline) 10 ml IVF Q12HR [facility]
[2018-05-08] MEDS: HYDROcodone/Acetaminophen 5/325 mg Tablet PO PRN ×4 (11:43→21:19)
[2018-05-08] MEDS: Fentanyl 100 MCG/2 ML VIAL SLOW IVP PRN ×2 (12:23→20:26)
--- NOTE | 2018-05-08 13:55 | PDOC.CTH ---
Cardiology Progress Note - Subjective Waking up currently.No issues per nurse. - Objective Vital Signs Temp Pulse Resp BP BP Pulse Ox 05/08/18 12:00 97.7 F 05/08/18 10:06 99 05/08/18 09:52 96.8 F L 05/08/18 05:25 138/63 05/08/18 04:00 97.7 F 62 16 138/63 96 Admit Weight 189 lb 9.561 oz Weight 200 lb 1.6 oz 05/07/18 05/08/18 05/09/18 06:59 06:59 06:59 Intake Total 1800 1280 Output Total 500 1150 290 Balance 1300 130 -290 - Physical Examination General/Neuro: other: (alert and awake) Lungs: CTA Heart: RRR Abdomen: NT/ND - Telemetry Telemetry Rhythm: SR - Labs Result Diagrams: 05/08/18 10:03 05/08/18 10:03 Troponin/CKMB CK-MB (CK-2) 1.5 ng/mL (0-6.6) 05/03/18 09:36 Troponin I 0.023 ng/mL (< 0.028) 05/03/18 15:44 - Assessment/Plan 1. CAD s/p CABG x 1 with PHAM-LAD 2. UA 3. BPD 4. Schizophrenia
[2018-05-08] MEDS: CEFAZOLIN/Water 2 GM/20 ML SYRINGE SLOW IVP SCH ×2 (15:03→21:06)
[2018-05-08] MEDS ORDERED: Nitroglycerin 50 MG/250 ML BOT ONE (15:13)
[2018-05-08] MEDS ORDERED: Papaverine 60 MG/2 ML VIAL ONE (15:13)
[2018-05-08] MEDS ORDERED: Calcium Chloride 1 GM/10 ML Abboject SYRINGE ONE (15:13)
[2018-05-08] MEDS ORDERED: Thrombin 5000 UNITS/5 ML VIAL ONE (15:13)
[2018-05-08] MEDS ORDERED: DOPamine 400 MG/10 ML VIAL ONE (15:13)
[2018-05-08] MEDS ORDERED: Aminocaproic Acid 5 GM/20 ML VIAL ONE (15:13)
[2018-05-08] MEDS ORDERED: Heparin 30,000 units/30 ml VIAL ONE (15:13)
[2018-05-08] MEDS ORDERED: Ketorolac Tromethamine 30 MG/ML VIAL ONE (15:13)
[2018-05-08] MEDS ORDERED: PHENYLEPHRINE-NS 100 MCG/ML 10 ML SYRINGE ONE (15:13)
[2018-05-08] MEDS ORDERED: Heparin 5,000 UNITS/ML VIAL ONE (15:13)
[2018-05-08] MEDS ORDERED: Protamine Sulfate 250 MG/25 ML VIAL ONE (15:13)
[2018-05-08 15:56] LABS: Potassium 4.1 mmol/L (3.5-5.1)
--- NOTE | 2018-05-08 16:44 | EKG ---
Test Reason : POST CABG Blood Pressure : / mmHG Vent. Rate : 063 BPM Atrial Rate : 063 BPM P-R Int : 180 ms QRS Dur : 086 ms QT Int : 428 ms P-R-T Axes : 026 033 086 degrees QTc Int : 437 ms Sinus rhythm with marked sinus arrhythmia Otherwise normal ECG When compared with ECG of 07-MAY-2018 12:46, No significant change was found Confirmed by CHIOMA STEWARD, SOtoniel ([id number]) on 05/08/2018 4:43:55 PM Referred By: Charles SANTILLAN Confirmed By:DR. Luna BEDOLLA MD
[2018-05-08] MEDS: ALPRAZolam 0.25 MG TAB PO PRN (19:50)
[2018-05-08] MEDS: Atorvastatin Calcium 40 MG TAB PO SCH (20:00)
[2018-05-08] MEDS: Famotidine/PF 20 mg/2ml Vial SLOW IVP SCH (20:01)
[2018-05-08] MEDS: Ondansetron HCl/PF 4 MG/2 ML Vial IVP PRN (21:10)
[2018-05-09] MEDS: HYDROcodone/Acetaminophen 5/325 mg Tablet PO PRN ×5 (02:45→22:24)
[2018-05-09 04:28] LABS: #Basophils 0.1 thou/uL (0.0-0.2); #Eosinphils 0.1 thou/uL (0.0-0.7); #Lymphocytes 3.6 thou/uL (1.20-3.40); #Monocytes 0.9 thou/uL (0.11-0.59); #Neutrophils 10.2 thou/uL (1.40-6.50); %Basophils 0.4 % (0.0-1.0); %Eosinophils 0.4 % (0.0-10.0); %Lymphocytes 24.3 % (21.0-51.0); %Monocytes 5.9 % (0.0-10.0); %Neutrophils 69.1 % (42.0-75.0); Hemoglobin 10.4 g/dL (12.0-16.0); Mean Corpuscular HGB CONC 31.7 g/dL (32.0-36.0); Mean Corpuscular Hemoglobin 29.3 pg (27.0-31.0); Mean Corpuscular Volume 92.4 fL (78.0-98.0); Mean Platelet Volume 8.5 fL (7.4-10.4); Platelet Count 259 thou/uL (130-400); RBC Distribution Width 12.4 % (11.5-14.5); Red Blood Cell (RBC) Count 3.54 mill/uL (4.20-5.40); White Blood Cell (WBC) Count 14.8 thou/uL (4.8-10.8)
[2018-05-09 04:49] LABS: Anion Gap 11 mmol/L (10-20); BUN (Urea Nitrogen) 17 mg/dL (9.8-20.1); Calc. Creatinine Clearance 135 mL/min (70-130); Calcium 9.2 mg/dL (7.8-10.44); Carbon Dioxide 22 mmol/L (22-29); Chloride 108 mmol/L (98-107); Estimated GFR-MDRD 89; Glucose 111 mg/dL (70-105); Potassium 4.4 mmol/L (3.5-5.1); Sodium 137 mmol/L (136-145)
[2018-05-09] MEDS: Ketorolac Tromethamine 30 MG/ML VIAL IVP SCH ×3 (05:17→17:35)
[2018-05-09] MEDS: CEFAZOLIN/Water 2 GM/20 ML SYRINGE SLOW IVP SCH (05:18)
[2018-05-09] MEDS: Famotidine/PF 20 mg/2ml Vial SLOW IVP SCH ×2 (08:32→20:33)
[2018-05-09] MEDS: D5 1/2 NS w/20 mEq KCL 1,000 ML IV SCH (08:33)
[2018-05-09] MEDS ORDERED: Aspirin 325 MG TAB PO SCH (09:00)
--- NOTE | 2018-05-09 09:15 | RAD ---
PORTABLE CHEST: DATE: 05/09/18. PROVIDED CLINICAL HISTORY: Post open heart. FINDINGS: Comparison is made with the study dated 05/08/18. Significant interval change with respect to the catina or examination is not apparent. IMPRESSION: As above. POS: SHYANNE
--- NOTE | 2018-05-09 10:40 | CON ---
DATE OF CONSULTATION: 05/09/2018 HISTORY: Jill Murillo is a 53-year-old female who states she has no primary care physician. She pres ented to the hospital on the with symptoms of chest pain, neck pain. She was in the yard workin g when she became extremely diaphoretic. A bee apparently was chasing her. While in the ER, she had elevated troponins, abnormal electrocardiogram. She was taken to the [facility] and found to have cor onary artery disease. She had bypass surgery since then and now in the ICU. She does not smoke, does not drink. She tells me that she has a history of asthma for a period of time. Apparently has some rescue inhaler she marlow s used from time to time. Six months ago she was seen at [facility] for chest pain and lymph node swell ing and was given some kind of medication, she tells me antibiotics. PAST MEDICAL HISTORY: Otherwise, pertinent for no diabetes, no hypertension. She snores, but appare ntly no witnessed apnea. PAST SURGICAL HISTORY: Hysterectomy, cardiac catheterization. 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 REVIEW OF SYSTEMS: Otherwise unremarkable. PHYSICAL EXAMINATION: VITAL SIGNS: Sats are 99, pulse 51, blood pressure 92/54, respiration 17. GENERAL: She appears to be in no distress, though she is complaining of being short of breath. CHEST: Chest reveals decreased breath sounds, no wheezing or crackles. CARDIAC: Normal S1, S2, no gallops. ABDOMEN: Soft. EXTREMITIES: I see no edema. LABORATORY DATA: White count 14,000. Chemistry profile shows normal BUN and creatinine. Chest x-ray shows bibasilar atelectatic changes, slightly more pronounced in the left base. IMPRESSION: 1. Status post asthma, though pO2 relatively stable. 2. Status post coronary artery bypass graft x2. 3. Possibly sleep apnea. PLAN: I have started Dulera. Continue PT and supportive care. We will follow while in the ICU. This is a consultation note, 70 minutes, 50% spent in direct patient care.
--- NOTE | 2018-05-09 14:12 | PDOC.PN ---
- Subjective Encounter Start Date: 05/09/18 Encounter Start Time: 12:00 Subjective: awake, has some pain at surgical site -: ate breakfast this am -: has chest tubes - Objective Resuscitation Status: Resuscitation Status FULL:Full Resuscitation MAR Reviewed: Yes Vital Signs & Weight: Vital Signs (12 hours) Temp Pulse Ox 05/09/18 12:00 99 F 05/09/18 08:00 98.2 F 97 05/09/18 03:00 98.8 F Weight Admit Weight 189 lb 9.561 oz Weight 192 lb 3.889 oz Most Recent Monitor Data Heart Rate from ECG 57 NIBP 106/65 NIBP BP-Mean 78 Respiration from ECG 27 SpO2 98 I&O: 05/08/18 05/09/18 05/10/18 06:59 06:59 06:59 Intake Total 1280 1818 500 Output Total 1150 1385 635 Balance 130 433 -135 Result Diagrams: 05/09/18 04:10 05/09/18 04:10 Additional Labs: Accuchecks 05/08/18 05/08/18 05/08/18 23:14 19:54 15:33 POC Glucose 113 H 122 H 133 H Phys Exam - Physical Examination HEENT: PERRLA, moist MMs Neck: no JVD, supple Respiratory: no wheezing rales+ Cardiovascular: RRR, no significant murmur Gastrointestinal: soft, non-tender, positive bowel sounds Musculoskeletal: no edema, pulses present Neurological: non-focal, moves all 4 limbs Psychiatric: normal affect, A&O x 3 Dx/Plan (1) S/P CABG x 1 Code(s): Z95.1 - PRESENCE OF AORTOCORONARY BYPASS GRAFT Status: Acute Comment: ochoa to lad off pump (2) CAD (coronary artery disease) Code(s): I25.10 - ATHSCL HEART DISEASE OF [place] CORONARY ARTERY W/O ANG PCTRS Status: Acute Qualifiers: Coronary Disease-Associated Artery/Lesion type: bypass graft [place] vs. transplanted heart: [place] heart Associated angina: with unstable angina Qualified Code(s): I25.700 - Atherosclerosis of coronary artery bypass graft(s) , unspecified, with unstable angina pectoris (3) Chest pain Code(s): R07.9 - CHEST PAIN, UNSPECIFIED Status: Acute Qualifiers: Chest pain type: chest pain due to myocardial ischemia (4) Obesity (BMI 30.0-34.9) Code(s): E66.9 - OBESITY, UNSPECIFIED Status: Chronic (5) Dyslipidemia Code(s): E78.5 - HYPERLIPIDEMIA, UNSPECIFIED Status: Acute - Plan is doing well post cabg -: to mobilize more when chest tubes are off -: sat in chair this am -: on asp, lipitor and nebs prn * . Review of Systems - Medications/Allergies Allergies/Adverse Reactions: Allergies Allergy/AdvReac Type Severity Reaction Status Date / Time No Known Allergies Allergy Verified 05/03/18 13:13 Medications: Current Medications Acetaminophen (Tylenol) 650 mg PO Q6H PRN PRN Reason: Headache/Fever Or Mild Pain Hydrocodone Bitart/Acetaminophen ([place] 5/325) 1 tab PO Q4H PRN PRN Reason: Moderate Pain (4-6) Last Admin: 05/09/18 13:12 Dose: 1 tab Hydrocodone Bitart/Acetaminophen ([place] 5/325) 2 tab PO Q4H PRN PRN Reason: Severe Pain (7-10) Last Admin: 05/09/18 02:45 Dose: 2 tab Al Hydroxide/Mg Hydroxide (Maalox) 30 ml PO Q4H PRN PRN Reason: Indigestion Albuterol/Ipratropium (Duoneb) 3 ml NEB [id number] PRN PRN Reason: SHORTNESS OF BREATH Alprazolam (Xanax) 0.25 mg PO Q8H PRN PRN Reason: Anxiety Last Admin: 05/08/18 19:50 Dose: 0.25 mg Aspirin (Aspirin) 325 mg PO DAILY [facility] Last Admin: 05/09/18 08:33 Dose: 325 mg Atorvastatin Calcium (Lipitor) 40 mg PO HS [facility] Last Admin: 05/08/18 20:00 Dose: 40 mg Bisacodyl (Dulcolax) 10 mg PO Q12H PRN PRN Reason: Constipation Bisacodyl (Dulcolax) 10 mg ND Q12H PRN PRN Reason: Constipation Dextrose/Water (Dextrose 50%) 25 gm SLOW IVP PRN PRN PRN Reason: PER HYPOGLYCEMIC PROTOCOL Famotidine (Pepcid) 20 mg SLOW IVP Q12HR [facility] Last Admin: 05/09/18 08:32 Dose: 20 mg Fentanyl (Sublimaze) 25 mcg SLOW IVP Q2H PRN PRN Reason: Moderate Pain (4-6) Stop: 05/10/18 09:40 Last Admin: 05/08/18 20:26 Dose: 25 mcg Fentanyl (Sublimaze) 50 mcg SLOW IVP Q2H PRN PRN Reason: Severe Pain (7-10) Stop: 05/10/18 09:40 Last Admin: 05/08/18 14:34 Dose: 50 mcg Glucagon (Glucagon) 1 mg SC PRN PRN PRN Reason: PER HYPOGLYCEMIC PROTOCOL Guaifenesin/Dextromethorphan (Robitussin Dm) 15 ml PO Q4H PRN PRN Reason: Cough Hydralazine HCl (Apresoline) 10 mg SLOW IVP Q6H PRN PRN Reason: To Maintain SBP< 140mmHG Potassium Chloride/Dextrose/Sod Cl (D5 1/2 Ns W/20 Meq Kcl) 1,000 mls @ 40 mls/ hr IV .Q24H [facility] Last Admin: 05/09/18 08:33 Dose: 1,000 mls Dextrose/Water (D5w) 1,000 mls @ 0 mls/hr IV INF PRN PRN Reason: PRN HYPOGLYCEMIC PROTOCOL Ketorolac Tromethamine (Toradol) 30 mg IVP Q6HR [facility] Stop: 05/11/18 12:01 Last Admin: 05/09/18 11:29 Dose: 30 mg Mometasone Furoate/Formoterol Fumar (Dulera 200 Mcg/5 Mcg Inhaler) 2 puff INH BID-RT [facility] Morphine Sulfate (Morphine) 2 mg SLOW IVP Q15MIN PRN PRN Reason: Severe Pain (7-10) Ondansetron HCl (Zofran) 4 mg IVP Q6H PRN PRN Reason: Nausea/Vomiting Last Admin: 05/08/18 21:10 Dose: 4 mg Potassium Chloride (Kcl) 20 meq IVPB PRN PRN PRN Reason: K level </= 4.0 Promethazine HCl (Phenergan) 6.25 mg IM Q4H PRN PRN Reason: Nausea/Vomiting Sodium Chloride (Flush - Normal Saline) 10 ml IVF Q12HR [facility] Last Admin: 05/09/18 13:14 Dose: 10 ml
[2018-05-09] MEDS ORDERED: Milk Of Magnesia 30 ML UDCUP PO PRN (14:25)
[2018-05-09] MEDS ORDERED: Nitroglycerin 0.4 MG TAB (25 Tab Bottle) SL PRN (14:25)
[2018-05-09] MEDS ORDERED: Mineral Oil ENEMA PR PRN (14:25)
[2018-05-09] MEDS ORDERED: Mag-Al 1200 mg/1200 mg/30 ML UDCUP PO PRN (14:25)
[2018-05-09] MEDS ORDERED: Bisacodyl 5 MG TAB PO PRN (14:25)
[2018-05-09] MEDS ORDERED: Bisacodyl 10 MG SUPP PR PRN (14:25)
[2018-05-09] MEDS ORDERED: Zolpidem Tartrate 5 MG TAB PO PRN (14:25)
[2018-05-09] MEDS ORDERED: Guaifenesin DM 100-10/5 ML UDCUP PO PRN (14:25)
[2018-05-09] MEDS ORDERED: diphenhydrAMINE 25 MG CAP PO PRN (14:25)
[2018-05-09] MEDS ORDERED: Artificial Tear Sol 15 ML BOT EA EYE PRN (14:25)
[2018-05-09] MEDS: Fentanyl 100 MCG/2 ML VIAL SLOW IVP PRN (16:04)
[2018-05-09] MEDS: Mometasone/Formoterol 120 PUFF INHALER INH SCH (18:32)
[2018-05-09] MEDS: Famotidine 20 MG TAB PO SCH (20:32)
[2018-05-09] MEDS: ALPRAZolam 0.25 MG TAB PO PRN (20:32)
[2018-05-09] MEDS: Atorvastatin Calcium 40 MG TAB PO SCH (20:33)
[2018-05-10] MEDS: Ketorolac Tromethamine 30 MG/ML VIAL IVP SCH ×4 (00:45→17:54)
[2018-05-10] MEDS: HYDROcodone/Acetaminophen 5/325 mg Tablet PO PRN ×5 (03:56→21:56)
[2018-05-10] MEDS: Mometasone/Formoterol 120 PUFF INHALER INH SCH ×2 (07:36→19:41)
[2018-05-10] MEDS: Aspirin 325 mg Enteric Coated Tablet PO SCH (08:21)
[2018-05-10] MEDS: Famotidine 20 MG TAB PO SCH ×2 (08:21→21:47)
--- NOTE | 2018-05-10 09:53 | PRG ---
DATE OF SERVICE: 05/10/2018 She said she is feeling better. She is less short of breath, no coughing or wheezing. PHYSICAL EXAMINATION: VITAL SIGNS: Sats 90% on room air, temperature 98, pulse 57, blood pressure 122/66. CHEST: No wheezing. CARDIAC: Normal S1, S2. No gallops. ABDOMEN: Soft, no mass. IMPRESSION: 1. Status post coronary artery bypass graft. 2. Asthma. 3. Obesity. PLAN: She wants a Dulera prescription to take home which I have given her. She can be seen in the [place] in a month if she gets discharged over the weekend.
--- NOTE | 2018-05-10 09:56 | PDOC.CTH ---
Cardiology Progress Note - Subjective Doing well. She is sore. She is also ambulating in the halls with assistance and using IS. - Objective Vital Signs Temp Pulse Resp BP BP Pulse Ox 05/10/18 07:36 57 L 16 05/10/18 07:19 98.1 F 57 L 16 126/66 93 L 05/10/18 06:48 93 L 05/10/18 03:30 97.8 F 66 13 108/55 L 91 L Admit Weight 189 lb 9.561 oz Weight 201 lb 15.095 oz 05/09/18 05/10/18 05/11/18 06:59 06:59 06:59 Intake Total 1818 876 Output Total 1385 1200 Balance 433 -324 - Physical Examination General/Neuro: alert & oriented x3, NAD Neck: carotid US brisk, no JVD present Lungs: CTA, unlabored respirations Heart: PMI normal, RRR Abdomen: no HSM, NT/ND, soft Extremities: + edema B - Telemetry Telemetry Rhythm: SR - Labs Result Diagrams: 05/09/18 04:10 05/09/18 04:10 Troponin/CKMB CK-MB (CK-2) 1.5 ng/mL (0-6.6) 05/03/18 09:36 Troponin I 0.023 ng/mL (< 0.028) 05/03/18 15:44 - Assessment/Plan 1. Svere CAD 2. s/p CABG Doing well On BB, statin IS, ambulating
[2018-05-10] MEDS: Metoprolol Tartrate 25 MG TAB PO SCH ×3 (11:36→21:55)
--- NOTE | 2018-05-10 14:10 | PDOC.PN ---
- Subjective Encounter Start Date: 05/10/18 Encounter Start Time: 09:30 Subjective: is ambulating in hallway with rehab -: no sob, feels better - Objective Resuscitation Status: Resuscitation Status FULL:Full Resuscitation MAR Reviewed: Yes Vital Signs & Weight: Vital Signs (12 hours) Temp Pulse Pulse Pulse Resp BP BP 05/10/18 13:26 61 70 139/76 131/64 05/10/18 11:10 97.9 F 52 L 16 05/10/18 07:36 57 L 16 05/10/18 07:19 98.1 F 57 L 16 05/10/18 06:48 05/10/18 03:30 97.8 F 66 13 BP BP Pulse Ox Pulse Ox Pulse Ox 05/10/18 13:26 94 L 94 L 05/10/18 11:10 120/60 100 05/10/18 07:36 05/10/18 07:19 126/66 93 L 05/10/18 06:48 93 L 05/10/18 03:30 108/55 L 91 L Weight Admit Weight 189 lb 9.561 oz Weight 201 lb 15.095 oz Most Recent Monitor Data Heart Rate from ECG 69 NIBP 116/77 NIBP BP-Mean 90 Respiration from ECG 21 SpO2 92 I&O: 05/09/18 05/10/18 05/11/18 06:59 06:59 06:59 Intake Total 1818 876 Output Total 1385 1200 Balance 433 -324 Result Diagrams: 05/09/18 04:10 05/09/18 04:10 Phys Exam - Physical Examination HEENT: PERRLA, moist MMs Neck: no JVD, supple Respiratory: no wheezing, no rhonchi Cardiovascular: RRR, no significant murmur Gastrointestinal: soft, non-tender, positive bowel sounds Musculoskeletal: no edema, pulses present Neurological: non-focal, moves all 4 limbs Psychiatric: normal affect, A&O x 3 Dx/Plan (1) S/P CABG x 1 Code(s): Z95.1 - PRESENCE OF AORTOCORONARY BYPASS GRAFT Status: Acute Comment: ochoa to lad off pump (2) CAD (coronary artery disease) Code(s): I25.10 - ATHSCL HEART DISEASE OF [place] CORONARY ARTERY W/O ANG PCTRS Status: Acute Qualifiers: Coronary Disease-Associated Artery/Lesion type: bypass graft [place] vs. transplanted heart: [place] heart Associated angina: with unstable angina Qualified Code(s): I25.700 - Atherosclerosis of coronary artery bypass graft(s) , unspecified, with unstable angina pectoris (3) Chest pain Code(s): R07.9 - CHEST PAIN, UNSPECIFIED Status: Resolved Qualifiers: Chest pain type: chest pain due to myocardial ischemia (4) Obesity (BMI 30.0-34.9) Code(s): E66.9 - OBESITY, UNSPECIFIED Status: Chronic (5) Dyslipidemia Code(s): E78.5 - HYPERLIPIDEMIA, UNSPECIFIED Status: Acute - Plan hemostable -: recovering well post cabg -: is on asp, lipitor and small dose of lopressor -: pulse around 50's -: likely dc plan in am per patient * . Review of Systems - Medications/Allergies Allergies/Adverse Reactions: Allergies Allergy/AdvReac Type Severity Reaction Status Date / Time No Known Allergies Allergy Verified 05/03/18 13:13 Medications: Current Medications Acetaminophen (Tylenol) 650 mg PO Q6H PRN PRN Reason: Headache/Fever Or Mild Pain Hydrocodone Bitart/Acetaminophen ([place] 5/325) 1 tab PO Q4H PRN PRN Reason: Moderate Pain (4-6) Last Admin: 05/09/18 13:12 Dose: 1 tab Hydrocodone Bitart/Acetaminophen ([place] 5/325) 2 tab PO Q4H PRN PRN Reason: Severe Pain (7-10) Last Admin: 05/10/18 13:34 Dose: 2 tab Al Hydroxide/Mg Hydroxide (Maalox) 30 ml PO Q4H PRN PRN Reason: Indigestion Albuterol/Ipratropium (Duoneb) 3 ml NEB [id number] PRN PRN Reason: SHORTNESS OF BREATH Alprazolam (Xanax) 0.25 mg PO Q8H PRN PRN Reason: Anxiety Last Admin: 05/09/18 20:32 Dose: 0.25 mg Artificial Tears (Tears Renewed 15ml Bottle) 0 drop EA EYE PRN PRN PRN Reason: Dry Eyes Aspirin (Ecotrin) 325 mg PO DAILY LANIE Last Admin: 05/10/18 08:21 Dose: 325 mg Atorvastatin Calcium (Lipitor) 40 mg PO HS [facility] Last Admin: 05/09/18 20:33 Dose: 40 mg Bisacodyl (Dulcolax) 10 mg PO Q12H PRN PRN Reason: Constipation Bisacodyl (Dulcolax) [address] Q12H PRN PRN Reason: Constipation Bisacodyl (Dulcolax) 10 mg PO Q12H PRN PRN Reason: Constipation Bisacodyl (Dulcolax) [address] Q12H PRN PRN Reason: Constipation Diphenhydramine HCl (Benadryl) 25 mg PO Q6H PRN PRN Reason: Itching & Insomnia or Trent Ladarius Famotidine (Pepcid) 20 mg PO BID [facility] Last Admin: 05/10/18 08:21 Dose: 20 mg Guaifenesin/Dextromethorphan (Robitussin Dm) 15 ml PO Q4H PRN PRN Reason: Cough Hydralazine HCl (Apresoline) 10 mg SLOW IVP Q6H PRN PRN Reason: To Maintain SBP< 140mmHG Ketorolac Tromethamine (Toradol) 30 mg IVP Q6HR [facility] Stop: 05/11/18 12:01 Last Admin: 05/10/18 11:59 Dose: 30 mg Magnesium Hydroxide (Milk Of Magnesium) 30 ml PO Q12H PRN PRN Reason: Constipation Metoprolol Tartrate (Lopressor) 12.5 mg PO BID [facility] Last Admin: 05/10/18 11:36 Dose: Not Given Mineral Oil (Fleet Mineral Oil) [address] DAILYPRN PRN PRN Reason: Constipation Mometasone Furoate/Formoterol Fumar (Dulera 200 Mcg/5 Mcg Inhaler) 2 puff INH BID-RT [facility] Last Admin: 05/10/18 07:36 Dose: 2 puff Nitroglycerin (Nitrostat) 0.4 mg SL Q5MIN PRN PRN Reason: Chest Pain Ondansetron HCl (Zofran) 4 mg IVP Q6H PRN PRN Reason: Nausea/Vomiting Last Admin: 05/08/18 21:10 Dose: 4 mg Potassium Chloride (Kcl) 20 meq IVPB PRN PRN PRN Reason: K level </= 4.0 Promethazine HCl (Phenergan) 6.25 mg IM Q4H PRN PRN Reason: Nausea/Vomiting Sodium Chloride (Flush - Normal Saline) 10 ml IVF Q12HR [facility]IE Last Admin: 05/10/18 09:46 Dose: 10 ml Sodium Chloride (Flush - Normal Saline) 10 ml IVF Q12HR [facility] Last Admin: 05/10/18 09:47 Dose: Not Given Zolpidem Tartrate (Ambien) 5 mg PO HSPRN PRN PRN Reason: Insomnia
[2018-05-10] MEDS: Ondansetron HCl/PF 4 MG/2 ML Vial IVP PRN (14:37)
[2018-05-10] MEDS: Atorvastatin Calcium 40 MG TAB PO SCH (21:47)
--- NOTE | 2018-05-10 22:28 | PRG ---
DATE OF SERVICE: 05/10/2018 SUBJECTIVE: Ms. Murillo was recently started on a statin, aspirin, and beta claudia which she has refu sed to take. She has history of medical noncompliance. She is post-coronary bypass grafting day #2 and refusing her usual postoperative medication. I had a long discussion with her in regards to this. She says that she is not willing to take any lo ng-term medications. I am leaving a prescription for pain medication for her and have wished her goo d luck. I have given her discharge instructions including to shower daily. She should not do any he vinayak lifting for the next 2 months over [address] she cannot drive for the next 2 weeks. I hope t hat she does well in time.
[2018-05-11] MEDS: Ketorolac Tromethamine 30 MG/ML VIAL IVP SCH ×3 (00:12→12:18)
[2018-05-11] MEDS: HYDROcodone/Acetaminophen 5/325 mg Tablet PO PRN ×3 (02:48→20:09)
[2018-05-11] MEDS: Mometasone/Formoterol 120 PUFF INHALER INH SCH ×2 (07:54→20:03)
[2018-05-11] MEDS: Metoprolol Tartrate 25 MG TAB PO SCH ×2 (08:46→20:04)
[2018-05-11] MEDS: Aspirin 325 mg Enteric Coated Tablet PO SCH (08:47)
[2018-05-11] MEDS: Famotidine 20 MG TAB PO SCH ×2 (08:47→20:03)
--- NOTE | 2018-05-11 10:57 | PDOC.PN ---
- Subjective Encounter Start Date: 05/11/18 Encounter Start Time: 09:45 Subjective: is ambulating in hallway, feels better -: eating well - Objective Resuscitation Status: Resuscitation Status FULL:Full Resuscitation MAR Reviewed: Yes Vital Signs & Weight: Vital Signs (12 hours) Temp Pulse Resp BP Pulse Ox 05/11/18 08:37 97.8 F 64 18 133/69 96 05/11/18 07:54 78 16 05/11/18 02:45 97.6 F 78 24 H 140/70 97 05/11/18 00:10 97.8 F 63 20 131/72 93 L Weight Admit Weight 189 lb 9.561 oz Weight 201 lb 8.04 oz Most Recent Monitor Data Heart Rate from ECG 69 NIBP 116/77 NIBP BP-Mean 90 Respiration from ECG 21 SpO2 92 I&O: 05/10/18 05/11/18 05/12/18 06:59 06:59 06:59 Intake Total 876 240 Output Total 1200 800 Balance -324 -560 Result Diagrams: 05/09/18 04:10 05/09/18 04:10 Phys Exam - Physical Examination HEENT: PERRLA, moist MMs Neck: no JVD, supple Respiratory: no wheezing, no rales Cardiovascular: RRR, no significant murmur Gastrointestinal: soft, no distention, positive bowel sounds Musculoskeletal: no edema, pulses present Neurological: non-focal, moves all 4 limbs Psychiatric: A&O x 3 Dx/Plan (1) S/P CABG x 1 Code(s): Z95.1 - PRESENCE OF AORTOCORONARY BYPASS GRAFT Status: Acute Comment: ochoa to lad off pump (2) CAD (coronary artery disease) Code(s): I25.10 - ATHSCL HEART DISEASE OF [place] CORONARY ARTERY W/O ANG PCTRS Status: Acute Qualifiers: Coronary Disease-Associated Artery/Lesion type: bypass graft [place] vs. transplanted heart: [place] heart Associated angina: with unstable angina Qualified Code(s): I25.700 - Atherosclerosis of coronary artery bypass graft(s) , unspecified, with unstable angina pectoris (3) Chest pain Code(s): R07.9 - CHEST PAIN, UNSPECIFIED Status: Resolved Qualifiers: Chest pain type: chest pain due to myocardial ischemia (4) Obesity (BMI 30.0-34.9) Code(s): E66.9 - OBESITY, UNSPECIFIED Status: Chronic (5) Dyslipidemia Code(s): E78.5 - HYPERLIPIDEMIA, UNSPECIFIED Status: Acute - Plan recovering well post cabg -: dc plan per CTS advice -: is on asp, lipitor, small dose of lopressor -: counselled reg med and dietary compliance on discharge * . Review of Systems - Medications/Allergies Allergies/Adverse Reactions: Allergies Allergy/AdvReac Type Severity Reaction Status Date / Time No Known Allergies Allergy Verified 05/03/18 13:13 Medications: Current Medications Acetaminophen (Tylenol) 650 mg PO Q6H PRN PRN Reason: Headache/Fever Or Mild Pain Hydrocodone Bitart/Acetaminophen ([place] 5/325) 1 tab PO Q4H PRN PRN Reason: Moderate Pain (4-6) Last Admin: 05/09/18 13:12 Dose: 1 tab Hydrocodone Bitart/Acetaminophen ([place] 5/325) 2 tab PO Q4H PRN PRN Reason: Severe Pain (7-10) Last Admin: 05/11/18 02:48 Dose: 2 tab Al Hydroxide/Mg Hydroxide (Maalox) 30 ml PO Q4H PRN PRN Reason: Indigestion Albuterol/Ipratropium (Duoneb) 3 ml NEB [id number] PRN PRN Reason: SHORTNESS OF BREATH Alprazolam (Xanax) 0.25 mg PO Q8H PRN PRN Reason: Anxiety Last Admin: 05/09/18 20:32 Dose: 0.25 mg Artificial Tears (Tears Renewed 15ml Bottle) 0 drop EA EYE PRN PRN PRN Reason: Dry Eyes Aspirin (Ecotrin) 325 mg PO DAILY [facility] Last Admin: 05/11/18 08:47 Dose: 325 mg Atorvastatin Calcium (Lipitor) 40 mg PO HS [facility] Last Admin: 05/10/18 21:47 Dose: 40 mg Bisacodyl (Dulcolax) 10 mg PO Q12H PRN PRN Reason: Constipation Bisacodyl (Dulcolax) 10 mg ND Q12H PRN PRN Reason: Constipation Bisacodyl (Dulcolax) 10 mg PO Q12H PRN PRN Reason: Constipation Bisacodyl (Dulcolax) 10 mg ND Q12H PRN PRN Reason: Constipation Diphenhydramine HCl (Benadryl) 25 mg PO Q6H PRN PRN Reason: Itching & Insomnia or [place] Ladarius Famotidine (Pepcid) 20 mg PO BID [facility] Last Admin: 05/11/18 08:47 Dose: 20 mg Guaifenesin/Dextromethorphan (Robitussin Dm) 15 ml PO Q4H PRN PRN Reason: Cough Hydralazine HCl (Apresoline) 10 mg SLOW IVP Q6H PRN PRN Reason: To Maintain SBP< 140mmHG Ketorolac Tromethamine (Toradol) 30 mg IVP Q6HR [facility] Stop: 05/11/18 12:01 Last Admin: 05/11/18 05:54 Dose: 30 mg Magnesium Hydroxide (Milk Of Magnesium) 30 ml PO Q12H PRN PRN Reason: Constipation Metoprolol Tartrate (Lopressor) 12.5 mg PO BID [facility] Last Admin: 05/11/18 08:46 Dose: Not Given Mineral Oil (Fleet Mineral Oil) 133 ml ND DAILYPRN PRN PRN Reason: Constipation Mometasone Furoate/Formoterol Fumar (Dulera 200 Mcg/5 Mcg Inhaler) 2 puff INH BID-RT [facility] Last Admin: 05/11/18 07:54 Dose: 2 puff Nitroglycerin (Nitrostat) 0.4 mg SL Q5MIN PRN PRN Reason: Chest Pain Ondansetron HCl (Zofran) 4 mg IVP Q6H PRN PRN Reason: Nausea/Vomiting Last Admin: 05/10/18 14:37 Dose: 4 mg Potassium Chloride (Kcl) 20 meq IVPB PRN PRN PRN Reason: K level </= 4.0 Promethazine HCl (Phenergan) 6.25 mg IM Q4H PRN PRN Reason: Nausea/Vomiting Sodium Chloride (Flush - Normal Saline) 10 ml IVF Q12HR [facility] Last Admin: 05/11/18 08:48 Dose: 10 ml Sodium Chloride (Flush - Normal Saline) 10 ml IVF Q12HR [facility] Last Admin: 05/11/18 08:49 Dose: Not Given Zolpidem Tartrate (Ambien) 5 mg PO HSPRN PRN PRN Reason: Insomnia
--- NOTE | 2018-05-11 16:21 | EKG ---
Test Reason : CP Blood Pressure : / mmHG Vent. Rate : 050 BPM Atrial Rate : 050 BPM P-R Int : 132 ms QRS Dur : 082 ms QT Int : 422 ms P-R-T Axes : 065 022 041 degrees QTc Int : 384 ms Sinus bradycardia Otherwise normal ECG Confirmed by ISMA STEWARD, KARLIE ([id number]), art editor KRISSY CORONADO ([id number]) on 05/11/2018 4:21:20 PM Referred By: Confirmed By:KARLIE ASHBY MD
--- NOTE | 2018-05-11 16:39 | PDOC.CTH ---
Cardiology Progress Note - Subjective No new issues. Working well with PT. - Objective Vital Signs Temp Pulse Pulse Pulse Resp BP BP 05/11/18 16:08 97.8 F 68 18 05/11/18 12:24 97.8 F 58 L 18 05/11/18 12:21 76 79 171/74 H 125/74 05/11/18 08:37 97.8 F 64 18 05/11/18 08:00 05/11/18 07:54 78 16 BP Pulse Ox Pulse Ox Pulse Ox 05/11/18 16:08 135/71 93 L 05/11/18 12:24 123/78 95 05/11/18 12:21 97 97 05/11/18 08:37 133/69 96 05/11/18 08:00 96 05/11/18 07:54 Admit Weight 189 lb 9.561 oz Weight 201 lb 8.04 oz 05/10/18 05/11/18 05/12/18 06:59 06:59 06:59 Intake Total 876 240 Output Total 1200 800 Balance -324 -560 - Physical Examination General/Neuro: alert & oriented x3, NAD Neck: no JVD present Lungs: CTA, unlabored respirations Heart: RRR Abdomen: NT/ND Extremities: + edema B (1+) - Telemetry Telemetry Rhythm: NSR - Labs Result Diagrams: 05/09/18 04:10 05/09/18 04:10 Troponin/CKMB CK-MB (CK-2) 1.5 ng/mL (0-6.6) 05/03/18 09:36 Troponin I 0.023 ng/mL (< 0.028) 05/03/18 15:44 - Assessment/Plan 1. Severe multivessel CAD 2. s/p CABG PLAN: - Increase PT as tolerated. - ASA/Statin for life - BB - Will add low dose ACEI.
[2018-05-11] MEDS: Atorvastatin Calcium 40 MG TAB PO SCH (20:03)
--- NOTE | 2018-05-11 20:58 | PRG ---
DATE OF SERVICE: 05/11/2018 SUBJECTIVE: Jill Murillo has no complaints. OBJECTIVE: VITAL SIGNS: She is afebrile, heart rates in the 60s, respiratory rate is 18, oximetry is 93 on room air. LUNGS: Completely clear. HEART: Regular rhythm. She says she feels great. She relayed the story of getting chased by what sounds like Africanized bees near her house. She was stung on her shirt but had no cutaneous sting. 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 She needs to carry an EpiPen in the future. IMPRESSION: 1. Coronary disease, status post coronary artery bypass graft. 2. History of asthma that has been stable for close to 4 years. She was blaming her symptoms on her asthma. 3. Sleep apnea, suspect. PLAN: Continue current care with physical therapy.
[2018-05-11] MEDS: ALPRAZolam 0.25 MG TAB PO PRN (21:55)
[2018-05-12] MEDS: HYDROcodone/Acetaminophen 5/325 mg Tablet PO PRN ×3 (00:01→08:51)
[2018-05-12] MEDS: Mometasone/Formoterol 120 PUFF INHALER INH SCH (07:13)
[2018-05-12] MEDS: Aspirin 325 mg Enteric Coated Tablet PO SCH (08:50)
[2018-05-12] MEDS: Famotidine 20 MG TAB PO SCH (08:50)
[2018-05-12] MEDS: Metoprolol Tartrate 25 MG TAB PO SCH (08:52)
[2018-05-12] MEDS ORDERED: Lisinopril 2.5 MG TAB PO SCH (09:00)
--- NOTE | 2018-05-12 11:43 | PDOC.PN ---
- Subjective Encounter Start Date: 05/12/18 Encounter Start Time: 09:45 Subjective: is amb and eating well -: no sob or palp - Objective Resuscitation Status: Resuscitation Status FULL:Full Resuscitation MAR Reviewed: Yes Vital Signs & Weight: Vital Signs (12 hours) Temp Pulse Resp BP Pulse Ox 05/12/18 08:52 64 05/12/18 07:13 64 12 05/12/18 07:10 97.5 F L 69 16 136/82 98 05/12/18 03:50 97.5 F L 64 17 123/55 L 93 L 05/11/18 23:55 97.9 F 62 16 135/67 100 Weight Admit Weight 189 lb 9.561 oz Weight 201 lb 4.513 oz Most Recent Monitor Data Heart Rate from ECG 69 NIBP 116/77 NIBP BP-Mean 90 Respiration from ECG 21 SpO2 92 I&O: 05/11/18 05/12/18 05/13/18 06:59 06:59 06:59 Intake Total 240 1320 Output Total 800 1050 Balance -560 270 Result Diagrams: 05/09/18 04:10 05/09/18 04:10 Additional Labs: Accuchecks 05/12/18 09:38 POC Glucose 126 H Phys Exam - Physical Examination HEENT: PERRLA, moist MMs Neck: no JVD, supple Respiratory: no wheezing, no rales Cardiovascular: RRR, no significant murmur Gastrointestinal: soft, non-tender, positive bowel sounds Musculoskeletal: no edema, pulses present Neurological: non-focal, moves all 4 limbs Psychiatric: A&O x 3 Dx/Plan (1) S/P CABG x 1 Code(s): Z95.1 - PRESENCE OF AORTOCORONARY BYPASS GRAFT Status: Acute Comment: ochoa to lad off pump (2) CAD (coronary artery disease) Code(s): I25.10 - ATHSCL HEART DISEASE OF [place] CORONARY ARTERY W/O ANG PCTRS Status: Acute Qualifiers: Coronary Disease-Associated Artery/Lesion type: bypass graft [place] vs. transplanted heart: [place] heart Associated angina: with unstable angina Qualified Code(s): I25.700 - Atherosclerosis of coronary artery bypass graft(s) , unspecified, with unstable angina pectoris (3) Chest pain Code(s): R07.9 - CHEST PAIN, UNSPECIFIED Status: Resolved Qualifiers: Chest pain type: chest pain due to myocardial ischemia (4) Obesity (BMI 30.0-34.9) Code(s): E66.9 - OBESITY, UNSPECIFIED Status: Chronic (5) Dyslipidemia Code(s): E78.5 - HYPERLIPIDEMIA, UNSPECIFIED Status: Acute - Plan hemostable -: dc pt home -: counselled reg med and dietary compliance -: needs to f/u with Jeff/Samir/pcp * .
[2018-05-12 11:58] VITALS: TEMP 97.7
[2018-05-12 12:40] VITALS: BP 147/63
--- NOTE | 2018-05-12 16:51 | PRG ---
DATE OF SERVICE: 05/12/2018 SUBJECTIVE: She has no complaints. She denies shortness of breath. Her sternum wound looks good. She says she is being discharged home. Her lungs are clear. She has no wheezes on exam. IMPRESSION: 1. Asthma, clinically stable. 2. Status post left internal mammary artery single vessel bypass, clinically stable. 3. Bee allergy. She has been reminded to get her primary care physician to get her an EpiPen that s he can carry with her.
--- NOTE | 2018-05-13 13:36 | EKG ---
Test Reason : Blood Pressure : / mmHG Vent. Rate : 055 BPM Atrial Rate : 055 BPM P-R Int : 116 ms QRS Dur : 100 ms QT Int : 418 ms P-R-T Axes : 021 011 049 degrees QTc Int : 399 ms Sinus bradycardia T wave abnormality, consider anterior ischemia Cannot exclude Inferior infarct , age undetermined Abnormal ECG When compared with ECG of 08-MAY-2018 10:04, Nonspecific T wave abnormality now evident in Inferior leads T wave inversion now evident in Anterior leads Nonspecific T wave abnormality has replaced inverted T waves in Lateral leads Confirmed by CHIOMA STEWARD, DR. Carrasco ([id number]) on 05/13/2018 1:36:17 PM Referred By: Confirmed By:DR. Luna BEDOLLA MD
--- NOTE | 2018-05-14 08:57 | DIS ---
DATE OF ADMISSION: . DATE OF DISCHARGE: 05/12/2018 DISCHARGE DISPOSITION: To home. PRIMARY DISCHARGE DIAGNOSIS: Status post coronary artery bypass graft to left anterior descending. SECONDARY DISCHARGE DIAGNOSES: Coronary artery disease, obesity, dyslipidemia, underlying bipolar di sorder. PROCEDURES DONE DURING HOSPITALIZATION: The patient has had coronary angiogram done, which showed os [id number] severe LAD disease. The patient had a CABG for 1 vessel where PHAM was grafted to L AD. This was done on 05/08/2018. Discharge H&H 10 and 32, platelet count 259,000. Discharge BUN an d creatinine is 17 and 0.6. Total cholesterol 168, triglycerides 93, LDL 111, HDL 38. Troponin x3 w as negative. DISCHARGE MEDICATIONS: Aspirin 325 mg p.o. daily, Lipitor 40 mg p.o. at bedtime, Calcium p.r.n. for pa in, lisinopril 2.5 mg p.o. daily, Lopressor 12.5 mg twice daily, Dulera inhaler 2 puffs twice daily. ALLERGIES: No known drug allergies. DISCHARGE PLAN: Patient is to follow up with primary care physician in 1 week, Dr. Josiah Dawson as advised and Dr. Aguilar as advised. BRIEF COURSE DURING HOSPITALIZATION: Patient initially got admitted on with complaints of ches t pain. She was placed under observation initially and had ACS evidence-based protocol followed. Th ree sets of troponins were done, which was negative. Nuclear stress test was attempted, but patient developed ischemic changes with development of chest pain in the initial 5 minutes itself and the pro cedure was abandoned. She has had consultation with Dr. Aguilar. Coronary angiogram done revealed ostial LAD. She has had CABG done for 1 vessel off pump by Dr[address] Josiah Dawson on the . Postop p atient has recovered well post-CABG. She is ambulating and eating well. She has been cleared for di schagamaliel by Cardiothoracic Surgery. She was counseled with regard to medication compliance and dietar y compliance. Again, patient kind of chooses some medications and wants to try herbal medications. She is clearly aware of risks involved with her having LAD occlusion with LAD ostial stenosis with he r current CABG and myself and cardiothoracic surgeon have counseled her multiple times during her sta y here. Please see a [id number] documentation on [facility] for the day of discharge.
[2018-05-15 09:59] LABS: Actual Bicarbonate (HCO3a) 19.9 mEq/L (22-28); Analyzer IN Cardio OR; Base Excess (BEa) -4.5 mEq/L (-2.0 to +3.0); CO2 Tension 34.2 mmHg (35.0-45.0); Calcium, Ionized 1.14 mmol/L (1.12-1.30); Carboxyhemoglobin (COHb) 0.5 gm% (0.0-3.0); Hemoglobin (Hb) 12.4 g/dL (12.0-16.0); O2 Tension (PaO2) 289.5 mmHg (80.0-100.0); pH, Arterial 7.38 (7.35-7.45)
[2018-05-15 10:00] LABS: Actual Bicarbonate (HCO3a) 24.1 mEq/L (22-28); Analyzer IN Cardio OR; CO2 Tension 33.5 mmHg (35.0-45.0); Calcium, Ionized 1.16 mmol/L (1.12-1.30); Carboxyhemoglobin (COHb) 0.5 gm% (0.0-3.0); Hemoglobin (Hb) 13.3 g/dL (12.0-16.0); O2 Tension (PaO2) 402.2 mmHg (80.0-100.0); Potassium - ABG Lab 4.22 mmol/L (3.70-5.30); pH, Arterial 7.47 (7.35-7.45)
[2018-05-15 10:00] LABS: Actual Bicarbonate (HCO3a) 22.5 mEq/L (22-28); Analyzer IN Cardio OR; Base Excess (BEa) -0.2 mEq/L (-2.0 to +3.0); CO2 Tension 31.3 mmHg (35.0-45.0); Calcium, Ionized 1.12 mmol/L (1.12-1.30); Hemoglobin (Hb) 13.3 g/dL (12.0-16.0); O2 Tension (PaO2) 332.5 mmHg (80.0-100.0); Potassium - ABG Lab 4.06 mmol/L (3.70-5.30); pH, Arterial 7.48 (7.35-7.45)
[2018-05-15 10:01] LABS: Puncture Site ALINE
[2018-05-15 10:01] LABS: Puncture Site ALINE
[2018-05-15 10:11] LABS: Puncture Site ALINE
== END 2018-05-12 12:39 | disposition home or self-care (01) | DRG 234 ==
LOC: ERS 09:22 → 2SW 12:09 → OBSVTOIN 05-06 09:58 → 2NO 05-06 19:49 → CCU 05-08 07:29 → 2NO 05-09 21:25
PROVIDERS: ADMIT Internal Medicine; ATTEND Internal Medicine
PROC: 4A023N7 Measurement of Cardiac Sampling and Pressure, Left Heart, Percutaneous Approach (ICD-10-PCS; 2018-05-06)
PROC: B2111ZZ Fluoroscopy of Multiple Coronary Arteries using Low Osmolar Contrast (ICD-10-PCS; 2018-05-06)
PROC: 02100Z9 Bypass Coronary Artery, One Artery from Left Internal Mammary, Open Approach (ICD-10-PCS; principal; 2018-05-08)
DX: I25.118 Atherosclerotic heart disease of native coronary artery with other forms of angina pectoris (principal); E66.9 Obesity, unspecified; E78.5 Hyperlipidemia, unspecified; F31.9 Bipolar disorder, unspecified; J45.909 Unspecified asthma, uncomplicated; G47.30 Sleep apnea, unspecified; F20.9 Schizophrenia, unspecified; Z91.030 Bee allergy status; Z68.34 Body mass index [BMI] 34.0-34.9, adult; Z79.899 Other long term (current) drug therapy
CPT/HCPCS: 36415; 36416; 36430; 71045; 77002; 78451; 80048; 80053; 80061; 82550; 82553; 82805; 83036; 83690; 84484; 85025; 85610; 85730; 86850; 86900; 86901; 93005; 93010; 93017; 93458; 93798; 94760; 99153; A4216; A9500; C1769; J1265; J1642; J1644; J1650; J1815; J1885; J2001; J2250; J2405; J2440; J2720; J3010; J3370; J3475; J7050; J7620; P9045; S0017; S0028

== ENCOUNTER 2018-05-21 11:35 | Emergency (ER) | payer MEDICARE ==
[2018-05-21 13:17] LABS: #Basophils 0.2 thou/uL (0.0-0.2); #Eosinphils 0.5 thou/uL (0.0-0.7); #Lymphocytes 3.4 thou/uL (1.20-3.40); #Monocytes 0.6 thou/uL (0.11-0.59); #Neutrophils 8.4 thou/uL (1.40-6.50); %Basophils 1.3 % (0.0-1.0); %Eosinophils 3.5 % (0.0-10.0); %Lymphocytes 26.3 % (21.0-51.0); %Monocytes 4.4 % (0.0-10.0); %Neutrophils 64.6 % (42.0-75.0); Hemoglobin 12.7 g/dL (12.0-16.0); Mean Corpuscular HGB CONC 31.9 g/dL (32.0-36.0); Mean Corpuscular Hemoglobin 29.6 pg (27.0-31.0); Mean Corpuscular Volume 92.8 fL (78.0-98.0); Mean Platelet Volume 7.2 fL (7.4-10.4); Platelet Count 554 thou/uL (130-400); RBC Distribution Width 12.5 % (11.5-14.5); White Blood Cell (WBC) Count 12.9 thou/uL (4.8-10.8)
[2018-05-21 13:33] LABS: ALT (SGPT) 16 U/L (8-55); AST (SGOT) 16 U/L (5-34); Albumin 4.4 g/dL (3.5-5.0); Alkaline Phosphatase 162 U/L (40-150); Anion Gap 12 mmol/L (10-20); BUN (Urea Nitrogen) 17 mg/dL (9.8-20.1); Bilirubin, Total 0.4 mg/dL (0.2-1.2); Calc. Creatinine Clearance 0 mL/min (70-130); Carbon Dioxide 24 mmol/L (22-29); Chloride 105 mmol/L (98-107); Estimated GFR-MDRD Greater than 90; Globulin 3.5 g/dL (2.4-3.5); Glucose 86 mg/dL (70-105); Potassium 4.1 mmol/L (3.5-5.1); Protein, Total 7.9 g/dL (6.0-8.3); Sodium 137 mmol/L (136-145)
--- NOTE | 2018-05-21 14:04 | RAD ---
PORTABLE CHEST: HISTORY: Cough. COMPARISON: 05/09/2018 FINDINGS: The lungs appear well aerated and clear of infiltrate. No evidence of vascular congestion or edema. Mild stranding in the right lung base. Postop sternotomy changes noted. Vascular markings are norm al. IMPRESSION: No acute process. POS: [facility]
== END 2018-05-21 15:28 | disposition home or self-care (01) ==
LOC: ERS 11:35
DX: J06.9 Acute upper respiratory infection, unspecified (principal); L53.9 Erythematous condition, unspecified; I25.10 Atherosclerotic heart disease of native coronary artery without angina pectoris; M19.90 Unspecified osteoarthritis, unspecified site; F41.9 Anxiety disorder, unspecified; F31.9 Bipolar disorder, unspecified; F20.9 Schizophrenia, unspecified
CPT/HCPCS: 36415; 71045; 80053; 85025; 93005

== ENCOUNTER 2023-10-29 10:16 | Emergency (ER) | payer MEDICARE, MEDICAID ==
[2023-10-29] MEDS ORDERED: Ibuprofen 800 MG TAB ONE (11:37)
== END 2023-10-29 11:40 | disposition home or self-care (01) ==
LOC: ERS 10:16
DX: H61.22 Impacted cerumen, left ear (principal)
CPT/HCPCS: 99282

== ENCOUNTER 2024-06-03 19:27 | Emergency (ER) | payer MEDICARE, MEDICAID ==
[2024-06-03] MEDS ORDERED: Ketorolac Tromethamine 30 MG (1 mL) VIAL ONE (19:38)
== END 2024-06-03 20:03 | disposition home or self-care (01) ==
LOC: ERS 19:27
DX: K08.89 Other specified disorders of teeth and supporting structures (principal); K02.9 Dental caries, unspecified; I10 Essential (primary) hypertension; I25.10 Atherosclerotic heart disease of native coronary artery without angina pectoris
CPT/HCPCS: 96372; 99282; J1885

== ENCOUNTER 2024-07-23 11:02 | Emergency (ER) | payer MEDICAID, MEDICARE | END 2024-07-23 11:46 | disposition left against medical advice (07) | LOC: ERS 11:02 | DX: R07.89 Other chest pain (principal); R05.9 Cough, unspecified | CPT/HCPCS: 87081; 87430; 99284 ==